=== PATIENT | male | born 1940 | race Caucasian/White ===

== ENCOUNTER 2017-05-14 15:30 | Emergency (ER) | payer MEDICARE, OTHER ==
--- NOTE | 2017-05-14 15:52 | EDM.PDOC ---
ED HPI GENERAL MEDICAL PROBLEM - General Chief Complaint: General Stated Complaint: I think I'm having a reaction to gabapentin Time Seen by Provider: 05/14/17 15:41 Source of Information: Reports: Patient, Family History Limitations: Reports: No Limitations - History of Present Illness INITIAL COMMENTS - FREE TEXT/NARRATIVE: Patient was started on gabapentin about a week ago for intermittent weakness and pain in lower extremities aggravated by walking. He took one dose a day for four days, then two doses a day for three days with no problems. He did have an episode of diaphoresis, dizziness and weakness yesterday while in [place] before getting a cat scan of spine to investigate for spinal stenosis. He was fine first thing today. At lunch, he took another dose of gabapentin (had been told by MD to increase to three times a day). 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 He did not vomit but was so weak he laid down in the grass a while before he went to the house to find his . Symptoms have almost resolved on arrival to ER. Onset: Today, Sudden Onset Date: 05/14/17 Onset Time: 13:00 Duration: Hour(s):, Improving, Resolved Prior to Arrival Location: Reports: Generalized Severity: Severe Improves with: Reports: Rest Worsens with: Reports: Movement Context: Reports: Activity Associated Symptoms: Reports: Diaphoresis, Nausea/Vomiting, Shortness of Breath , Weakness. Denies: Confusion, Cough, Headaches, Loss of Appetite, Malaise Lower Back Pain Score (Numeric/FACES): 7 - Related Data Allergies Allergy/AdvReac Type Severity Reaction Status Date / Time cortisone Allergy Cannot Verified 05/14/17 16:08 Remember meperidine [From Demerol] Allergy Cannot Verified 05/14/17 16:08 Remember Home Meds: Home Meds . [Unable to Verify Home Med List] 05/14/17 [History] Past Medical History Musculoskeletal History: Reports: Back Pain, Chronic, Other (See Below) ( chronic shoulder pain bilat due to rotator cuff issues, intermittent weakness and pain in bilat lower extremities with walking) ED ROS GENERAL - Review of Systems Review Of Systems: See Below Constitutional: Reports: Weakness, Diaphoresis. Denies: Fever, Weight Loss HEENT: Reports: Throat Swelling, Other (dizziness). Denies: Dental Pain, Ear Pain, Eye Pain, Nose Pain, Vision Change Respiratory: Reports: Shortness of Breath. Denies: Wheezing, Pleuritic Chest Pain, Cough, Sputum Cardiovascular: Reports: Dyspnea on Exertion (some chronic exertional dyspnea according to and patient. Patient was a smoker for many years but not now. ), Lightheadedness. Denies: Chest Pain, Blood Pressure Problem, Claudication, Orthopnea, Palpitations Endocrine: Reports: No Symptoms. Denies: Polydypsia, Polyuria GI/Abdominal: Reports: Difficulty Swallowing (difficulty swallowing when other symptoms noted, now resolved). Denies: Abdominal Pain, Constipation, Diarrhea, Hematemesis, Hematochezia : Reports: No Symptoms. Denies: Dysuria, Frequency, Hematuria, Incontinence Musculoskeletal: Reports: Shoulder Pain (chronic bilat shoulder pain and LBP), Back Pain Skin: Reports: No Symptoms Neurological: Reports: Difficulty Walking, Other (walking any distance causes numbness pain and weakness in bilat lower extremities. Patient states his legs will actually give out if he walks long enough.). Denies: Confusion, Dizziness , Headache, Seizure Psychiatric: Reports: No Symptoms Hematologic/Lymphatic: Reports: No Symptoms Immunologic: Reports: No Symptoms ED EXAM, GENERAL - Physical Exam Exam: See Below Exam Limited By: No Limitations General Appearance: Alert, WD/WN, No Apparent Distress Eye Exam: Bilateral Eye: EOMI, PERRL Ears: Normal External Exam, Normal Canal, Hearing Grossly Normal, Normal TMs Nose: Normal Inspection, Normal Mucosa Throat/Mouth: Normal Inspection, Normal Lips, Normal Teeth, Normal Oropharynx, Normal Voice, No Airway Compromise Head: Atraumatic, Normocephalic Neck: Normal Inspection, Supple, Non-Tender, Full Range of Motion. No: Carotid Bruit, Lymphadenopathy (L), Lymphadenopathy (R), Thyromegaly Respiratory/Chest: No Respiratory Distress, Lungs Clear, Chest Non-Tender, Decreased Breath Sounds. No: No Accessory Muscle Use, Crackles, Rales, Rhonchi , Wheezing Cardiovascular: Normal Peripheral Pulses, Regular Rate, Rhythm, No Edema, No JVD , No Murmur, No Rub Peripheral Pulses: 3+: Radial (L), Radial (R) GI/Abdominal: Normal Bowel Sounds, Soft, Non-Tender, No Organomegaly, No Abnormal Bruit, No Mass. No: Guarding, Rigid, Rebound, Tender (Male) Exam: Deferred Rectal (Males) Exam: Deferred Back Exam: Normal Inspection, Full Range of Motion. No: Muscle Spasm, Vertebral Tenderness Extremities: Normal Inspection, Normal Range of Motion, Non-Tender, No Pedal Edema Neurological: Alert, Oriented, CN II-XII Intact, Normal Cognition, Normal Gait, Normal Reflexes, No Motor/Sensory Deficits, Other (Patellar reflexes brisk bilat. Romberg negative. no focal neurologic deficit noted). No: Abnormal Gait Psychiatric: Normal Mood Skin Exam: Warm, Dry, Intact, Normal Color, No Rash Lymphatic: No Adenopathy EKG INTERPRETATION EKG Date: 05/14/17 Time: 16:00 Rhythm: NSR Rate (Beats/Min): 83 Vesper: Normal P-Wave: Present QRS: Normal ST-T: Other (diffuse non specific T wave abnormalites) QT: Normal Comparison: NA - No Prior EKG EKG Interpretation Comments: No acute specific abnormailites noted. No previous noted to compare to. Course - Vital Signs Text/Narrative:: Patient evaluated and labs and diagnostics reviewed with patient and . territory sales consultant did not reveal any arrythmia and patient symptoms did not reoccur while in ER. He was advised it is likely an adverse effect from gabapentin but could not completely rule out a cardiac or cerebral issue. If his symptoms persist or occur even after stopping the gabapentin, he will need further evaluation by his PCP. Patient voiced understanding of this information. Last Recorded V/S: Last Vital Signs Temp 36.4 C 05/14/17 15:30 Pulse 89 05/14/17 15:30 Resp 20 05/14/17 15:30 BP 120/60 05/14/17 15:30 Pulse Ox 91 L 05/14/17 15:30 - Orders/Labs/Meds Orders: Active Orders 24 hr Category Date Time Status EKG 12 Lead [EKG Documentation Completion] [RC] STAT Care 05/14/17 16:06 Active CXR [Chest 2V] [CR] Stat Exams 05/14/17 16:09 Taken Labs: Laboratory Tests 05/14/17 05/14/17 Range/Units 16:30 16:30 WBC 11.2 H (4.0-10.0) x10^3/uL RBC 4.98 (4.5-6.0) x10^6/uL Hgb 14.8 (14.0-18.0) g/dL Hct 44.3 (40.0-52.0) % MCV 89.0 (78.0-93.0) fL MCH 29.7 (26.0-32.0) pg MCHC 33.4 (32.0-36.0) g/dL RDW Coeff of Naseem 13.1 (10.0-15.0) % Plt Count 240 (130-400) x10^3/uL Neut % (Auto) 84.5 H (50.0-80.0) % Lymph % (Auto) 8.0 L (25.0-50.0) % Converse % (Auto) 5.8 (2.0-11.0) % Eos % (Auto) 1.3 (0.0-4.0) % Baso % (Auto) 0.4 (0.2-1.2) % Sodium 140 (136-145) mmol/L Potassium 4.4 (3.5-5.1) mmol/L Chloride 104 (98-107) mmol/L Carbon Dioxide 30 (21-32) mmol/L BUN 23 H (7-18) mg/dL Creatinine 1.6 H (0.70-1.30) mg/dL Est Cr Clr Drug Dosing 40.53 mL/min Estimated GFR (MDRD) 42 Glucose 132 H (74-106) mg/dL Calcium 8.7 (8.5-10.1) mg/dL Corrected Calcium 8.86 (8.5-10.1) mg/dL Total Bilirubin 0.3 (0.2-1.0) mg/dL AST 18 (15-37) U/L ALT 28 (16-63) U/L Alkaline Phosphatase 104 (46-116) U/L Creatine Kinase 125 (39-308) U/L Creatine Kinase Index 2.6 (0.0-4.0) % CK-MB (CK-2) 3.3 (0.0-3.6) ng/mL Troponin I < 0.017 (<=0.056) ng/mL Total Protein 7.4 (6.4-8.2) g/dL Albumin 3.8 (3.4-5.0) g/dL Globulin 3.6 Albumin/Globulin Ratio 1.06 TSH, Ultra Sensitive 0.520 (0.358-3.74) uIU/mL Departure - Departure Time of Disposition: 17:44 Disposition: Home, Self-Care 01 Condition: Good Clinical Impression: Medication adverse effect Qualifiers: Encounter type: initial encounter Qualified Code(s): T88.7XXA - Unspecified adverse effect of drug or medicament, initial encounter - Discharge Information Referrals: Hernan Rivera MD [Primary Care Provider] - Forms: ED Department Discharge Additional Instructions: Do not take any more gabapentin til you talk to your regular doctor. If you continue to have more similar episodes after no longer taking gabapentin you will need a further workup for possibly cardiac issues. - My Orders Last 24 Hours: My Active Orders 05/14/17 16:06 EKG 12 Lead [EKG Documentation Completion] [RC] STAT 05/14/17 16:09 CXR [Chest 2V] [CR] Stat - Assessment/Plan Last 24 Hours: My Active Orders 05/14/17 16:06 EKG 12 Lead [EKG Documentation Completion] [RC] STAT 05/14/17 16:09 CXR [Chest 2V] [CR] Stat
[2017-05-14 16:24] VITALS: BP 120/60
[2017-05-14 17:10] LABS: CHLORIDE,CL 104 mmol/L (98-107); SODIUM,NA 140 mmol/L (136-145)
== END 2017-05-14 17:50 | disposition home or self-care (01) ==
LOC: VM.ED 15:30
DX: R42 Dizziness and giddiness (principal); T42.6X5A Adverse effect of other antiepileptic and sedative-hypnotic drugs, initial encounter; Z88.8 Allergy status to other drugs, medicaments and biological substances
CPT/HCPCS: 36415; 71020; 80053; 82550; 82553; 84443; 84484; 85025; 99285; 99285-GF

== ENCOUNTER 2019-03-06 21:30 | Emergency (ER) | payer MEDICARE, OTHER ==
[2019-03-06] MEDS ORDERED: Sodium Chloride 0.9% 10 ML Syringe FLUSH PRN (21:51)
[2019-03-06] MEDS ORDERED: Aspirin 81 MG Tab.Chew PO ONE (21:53)
[2019-03-06] MEDS ORDERED: GI Cocktail Oral Solution 30 ML PO ONE (22:06)
--- NOTE | 2019-03-06 22:14 | EDM.PDOC ---
ED HPI GENERAL MEDICAL PROBLEM - General Chief Complaint: Cardiovascular Problem Stated Complaint: chest pain Time Seen by Provider: 03/06/19 21:32 Source of Information: Reports: Patient, Family History Limitations: Reports: No Limitations - History of Present Illness INITIAL COMMENTS - FREE TEXT/NARRATIVE: Patient comes in with reports of chest pressure mid sternal in nature with activity since noon. He describes the pain as tearing. It is intermittently happening since that time and worse with walking. Denies prior OR or Stroke. Was smoker up to 11 years ago. Denies nausea, vomiting, blood in urine or stool , no headache, no cancer, no edema. Denies numbness, tingling, or pain down any extremities or in the neck or back. He does state he removed a tree and stump yesterday. Onset: Today Duration: Intermittent Quality: Reports: Other (tearing) Severity: Moderate Worsens with: Reports: Movement Associated Symptoms: Reports: Chest Pain, Shortness of Breath - Related Data Allergies Allergy/AdvReac Type Severity Reaction Status Date / Time meperidine [From Demerol] Allergy Severe Anaphylactic Verified 03/06/19 23:30 Shock, Hypotension cortisone Allergy Intermediate memory loss Verified 03/06/19 23:30 codeine Allergy Cough Verified 03/06/19 23:30 Home Meds: Home Meds Carbidopa/Levodopa [Carbidopa-Levodopa 10-100] 1 tab PO BEDTIME 08/10/17 [ History] Lidocaine/Prilocaine [Lidocaine-Prilocaine Cream] 1 applic TOP BID PRN 08/10/17 [History] Pantoprazole [ProTONIX] 40 mg PO ACBREAKFAST 08/10/17 [History] fentaNYL [Duragesic] 12 mcg TD Q3D PRN 08/10/17 [History] Past Medical History HEENT History: Reports: Cataract, Impaired Vision, Other (See Below) Other HEENT History: wears glasses. full upper and lower dentures Cardiovascular History: Reports: None Respiratory History: Reports: COPD Gastrointestinal History: Reports: GERD, Irritable Bowel Syndrome Other Gastrointestinal History: Ulcers Genitourinary History: Reports: None Musculoskeletal History: Reports: Back Pain, Chronic, Fracture, Fibromyalgia, Other (See Below) Other Musculoskeletal History: Restless leg syndrome Neurological History: Reports: Concussion Other Neuro History: restless legs Psychiatric History: Reports: Anxiety, Depression Endocrine/Metabolic History: Reports: None Hematologic History: Reports: None Immunologic History: Reports: None Oncologic (Cancer) History: Reports: None Dermatologic History: Reports: None - Past Surgical History HEENT Surgical History: Reports: Cataract Surgery, Oral Surgery GI Surgical History: Reports: Appendectomy, Cholecystectomy, Colonoscopy, EGD, Polypectomy Musculoskeletal Surgical History: Reports: Shoulder Surgery Social & Family History - Caffeine Use Caffeine Use: Reports: Coffee ED ROS GENERAL - Review of Systems Review Of Systems: See Below Constitutional: Reports: No Symptoms HEENT: Reports: No Symptoms Respiratory: Reports: Shortness of Breath Cardiovascular: Reports: Chest Pain Endocrine: Reports: No Symptoms GI/Abdominal: Reports: No Symptoms : Reports: No Symptoms Musculoskeletal: Reports: No Symptoms Skin: Reports: No Symptoms Neurological: Reports: No Symptoms Psychiatric: Reports: No Symptoms Hematologic/Lymphatic: Reports: No Symptoms Immunologic: Reports: No Symptoms ED EXAM, GENERAL - Physical Exam Exam: See Below Exam Limited By: No Limitations General Appearance: Alert, WD/WN, No Apparent Distress Eye Exam: Bilateral Eye: EOMI, Normal Inspection, PERRL Ears: Normal External Exam, Normal Canal, Hearing Grossly Normal, Normal TMs Nose: Normal Inspection, Normal Mucosa, No Blood Throat/Mouth: Normal Inspection, Normal Lips, Normal Teeth, Normal Gums, Normal Oropharynx, Normal Voice, No Airway Compromise Head: Atraumatic, Normocephalic Neck: Normal Inspection, Supple, Non-Tender, Full Range of Motion Respiratory/Chest: No Respiratory Distress, Lungs Clear, Normal Breath Sounds, No Accessory Muscle Use, Other (chest pain reproducible upon palpation, mid sternal area) Cardiovascular: Normal Peripheral Pulses, Regular Rate, Rhythm, No Edema, No Gallop, No JVD, No Murmur, No Rub GI/Abdominal: Normal Bowel Sounds, Soft, Non-Tender, No Organomegaly, No Distention, No Abnormal Bruit, No Mass Back Exam: Normal Inspection, Full Range of Motion, NT Extremities: Normal Inspection, Normal Range of Motion, Non-Tender, Normal Capillary Refill, No Pedal Edema Neurological: Alert, Oriented, CN II-XII Intact, Normal Cognition, Normal Gait, Normal Reflexes, No Motor/Sensory Deficits Psychiatric: Normal Affect, Normal Mood Skin Exam: Warm, Dry, Intact, Normal Color, No Rash Lymphatic: No Adenopathy Course - Orders/Labs/Meds Orders: Active Orders 24 hr Category Date Time Status EKG Documentation Completion [RC] STAT Care 03/06/19 21:51 Ordered Chest 1V Frontal [CR] Stat Exams 03/06/19 21:51 Ordered CBC WITH AUTO DIFF [HEME] Stat Lab 03/06/19 21:51 Ordered COMPREHENSIVE METABOLIC PN,CMP [CHEM] Stat Lab 03/06/19 21:51 Ordered CREATINE KINASE,CK [CHEM] Stat Lab 03/06/19 21:51 Ordered INR,PT,PROTHROMBIN TIME [COAG] Stat Lab 03/06/19 21:51 Ordered PRO B-TYPE NATRIUR PEPT,BNPPRO [CHEM] Stat Lab 03/06/19 21:51 Ordered TROPONIN I [CHEM] Stat Lab 03/06/19 21:51 Ordered TSH ULTRASENSITIVE [CHEM] Stat Lab 03/06/19 21:51 Ordered Sodium Chloride 0.9% [Saline Flush] Med 03/06/19 21:51 Ordered 10 ml FLUSH ASDIRECTED PRN Saline Lock Insert [OM.PC] Routine Oth 03/06/19 21:51 Ordered Medication Orders Sodium Chloride (Saline Flush) 10 ml FLUSH ASDIRECTED PRN PRN Reason: Keep Vein Open Meds: Medications Generic Name Dose Route Start Last Admin Trade Name Freq PRN Reason Stop Dose Admin Sodium Chloride 10 ml 03/06/19 21:51 Saline Flush FLUSH ASDIRECTED PRN Keep Vein Open Discontinued Medications Generic Name Dose Route Start Last Admin Trade Name Freq PRN Reason Stop Dose Admin Al Hydroxide/Mg Hydroxide 30 ml 03/06/19 22:06 Gi Cocktail PO 03/06/19 22:07 ONETIME ONE Aspirin 162 mg 03/06/19 21:53 Aspirin PO 03/06/19 21:54 ONETIME ONE - Radiology Interpretation Free Text/Narrative:: Chest x-ray negative, chest, abdomen, pelvis negative for AAA, negative for acute process Departure - Departure Time of Disposition: 23:39 Disposition: Home, Self-Care 01 Condition: Fair Clinical Impression: Troponin level elevated Instructions: Acute Coronary Syndrome Forms: ED Department Discharge Additional Instructions: Plan 1. Return in the AM for additional Troponin level draw. 2. If higher than first reading, I recommend additional follow up at [facility] for further studies to be sure this is not cardiac related. 3. I did recommend hospitalization overnight, which you did refuse. 4. Drink more water. You do have slightly elevated kidney creatinine levels which can indicate some renal failure. 5. If you have additional chest pains you can try tylenol and return to the ER as needed. 6. Please call with any questions or concerns. - Problem List & Annotations (1) Troponin level elevated SNOMED Code(s): 921703957, [id number], [id number] Code(s): R74.8 - ABNORMAL LEVELS OF OTHER SERUM ENZYMES Status: Acute Priority: Medium Current Visit: Yes - Problem List Review Problem List Initiated/Reviewed/Updated: Yes - My Orders Last 24 Hours: My Active Orders 03/06/19 21:51 EKG Documentation Completion [RC] STAT Chest 1V Frontal [CR] Stat CBC WITH AUTO DIFF [HEME] Stat COMPREHENSIVE METABOLIC PN,CMP [CHEM] Stat CREATINE KINASE,CK [CHEM] Stat INR,PT,PROTHROMBIN TIME [COAG] Stat PRO B-TYPE NATRIUR PEPT,BNPPRO [CHEM] Stat TROPONIN I [CHEM] Stat TSH ULTRASENSITIVE [CHEM] Stat Sodium Chloride 0.9% [Saline Flush] 10 ml FLUSH ASDIRECTED PRN Saline Lock Insert [OM.PC] Routine - Assessment/Plan Last 24 Hours: My Active Orders 03/06/19 21:51 EKG Documentation Completion [RC] STAT Chest 1V Frontal [CR] Stat CBC WITH AUTO DIFF [HEME] Stat COMPREHENSIVE METABOLIC PN,CMP [CHEM] Stat CREATINE KINASE,CK [CHEM] Stat INR,PT,PROTHROMBIN TIME [COAG] Stat PRO B-TYPE NATRIUR PEPT,BNPPRO [CHEM] Stat TROPONIN I [CHEM] Stat TSH ULTRASENSITIVE [CHEM] Stat Sodium Chloride 0.9% [Saline Flush] 10 ml FLUSH ASDIRECTED PRN Saline Lock Insert [OM.PC] Routine Assessment:: Elevated troponin Plan: Plan 1. Return in the AM for additional Troponin level draw. 2. If higher than first reading, I recommend additional follow up at [facility] for further studies to be sure this is not cardiac related. 3. I did recommend hospitalization overnight, which you did refuse. 4. Drink more water. You do have slightly elevated kidney creatinine levels which can indicate some renal failure. 5. If you have additional chest pains you can try tylenol and return to the ER as needed. 6. Please call with any questions or concerns.
[2019-03-06] MEDS ORDERED: Iopamidol 612 MG/ML 100 ML Bottle IVPUSH ONE (22:27)
[2019-03-06 22:58] LABS: CHLORIDE,CL 108 mmol/L (98-107); SODIUM,NA 144 mmol/L (136-145)
[2019-03-06 23:00] LABS: ANION GAP 11.2 mmol/L (10-20)
[2019-03-07 05:03] VITALS: BP 148/76
--- NOTE | 2019-03-07 08:54 | CR ---
[id number] RAD/RAD Chest PA or AP 1V EXAM: FRONTAL CHEST INDICATION: Chest pain. COMPARISON: May 14, 2017. DISCUSSION: Hyperinflation compatible with chronic obstructive pulmonary disease. Mild bibasilar scarring or subsegmental atelectasis. No acute infiltrates. IMPRESSION: 1. No acute findings. Skyler Hensley MD 03/07/19 0853 Thank you for allowing us to participate in the care of your patient.
--- NOTE | 2019-03-07 09:13 | CT ---
[id number] CT/CT Chest Abdomen Pelvis W IV EXAM: CT Chest Abdomen Pelvis W IV CLINICAL DATA: THORACIC ANEURYSM. COMPARISON STUDY: Radiograph from March 06, 2019.. FINDINGS: Thoracic aorta atherosclerosis, most prominent in the aortic arch and proximal aspect of the descending segment. 4 vessel branching pattern of the aortic arch, normal variant. However, no aneurysm. No dissection. Lungs demonstrate moderate changes of parenchymal emphysema, apical predominant. Additionally, there is moderate basal predominant peribronchial thickening, consistent with chronic bronchitis. Mild sequela of granulomatous disease throughout the lungs, including numerous small subpleural noncalcified pulmonary nodules measuring up to 4 mm in diameter. Mild amount of dependent atelectasis in both lungs. Small amount of debris layering dependently in the bronchus intermedius. Abdomen/pelvis: Gallbladder has been resected. Liver, spleen, pancreas, adrenal glands, and kidneys are unremarkable. Few scattered colonic diverticula. No evidence of acute diverticulitis. No colitis. No small bowel obstruction or inflammation. Prostate gland enlargement exerting mass effect on the bladder base. Urinary bladder is unremarkable. No lymphadenopathy in the abdomen or pelvis. Bones and soft tissues: Postsurgical change discectomy and posterior fusion at L4-5. Advanced L5-S1 spondylosis. IMPRESSION: Aorta atherosclerosis without aneurysm or dissection. Overall, no acute findings in the chest, abdomen, or pelvis. Link Lara MD 03/07/19 0912 Thank you for allowing us to participate in the care of your patient.
== END 2019-03-06 23:45 | disposition home or self-care (01) ==
LOC: VM.ED 21:30
DX: R79.89 Other specified abnormal findings of blood chemistry (principal); J44.9 Chronic obstructive pulmonary disease, unspecified; G89.29 Other chronic pain; F41.9 Anxiety disorder, unspecified; F32.9 Major depressive disorder, single episode, unspecified; Z79.899 Other long term (current) drug therapy; Z88.5 Allergy status to narcotic agent
CPT/HCPCS: 36415; 71045; 71260; 74177; 80053; 82550; 83880; 84443; 84484; 85025; 85610; 93005; 99285; A9270; Q9967

== ENCOUNTER 2019-03-08 20:18 | Emergency (ER) | payer MEDICARE, OTHER ==
[2019-03-08] MEDS: Piperacillin/Tazobactam 4.5 GM in Sodium Chloride 0.9% 100 ML IV ONE (20:46)
--- NOTE | 2019-03-08 20:51 | EDM.PDOC ---
ED HPI GENERAL MEDICAL PROBLEM - General Chief Complaint: Cardiovascular Problem Stated Complaint: SOB Time Seen by Provider: 03/08/19 20:24 Source of Information: Reports: Patient History Limitations: Reports: No Limitations - History of Present Illness INITIAL COMMENTS - FREE TEXT/NARRATIVE: Pt. presents to ER with complaints of severe dyspnea. Pt. was discharged AMA from [facility] in [place] this AM following stenting of a 100% LAD occlusion. He was admitted yesterday and left AMA this AM. Pt. was found to have bilateral lower lobe pneumonia and was started on oral levaquin 500mg daily. He states that he has been having increased dyspnea throughout the day today. He states that he has had some cough. No fever or chills. His only other complaint is that of nausea. Denies any chest discomfort, jaw, arm, neck or back pain. Pt. troponin on discharge this AM was 8. His EF on echo performed this AM was 35 -40%. He was started on ACEI, beta romana, and clopidogrel when discharged this AM. EMS was summoned to transport the patient this evening. His initial O2 sat was in the lower 80% range. He was started on O2 and states that he is feeling much better since starting the O2. He was on O2 via NRB at 15 liters and was satting in the high 90s. He does have an underlying history of COPD and quit smoking 11 years ago. Does not appear that he uses any inhalers. Prehospital EKG showed continued ST changes. This was reviewed by cardiology and felt to be improved. 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: EKG, IV/IO, Oxygen Abdomen Pain Score (Numeric/FACES): 6 - Related Data Allergies Allergy/AdvReac Type Severity Reaction Status Date / Time meperidine [From Demerol] Allergy Severe Anaphylactic Verified 03/08/19 21:03 Shock, Hypotension cortisone Allergy Intermediate memory loss Verified 03/08/19 21:03 codeine Allergy Cough Verified 03/08/19 21:03 Home Meds: Home Meds Carbidopa/Levodopa [Carbidopa-Levodopa 10-100] 1 tab PO BEDTIME 08/10/17 [ History] Lidocaine/Prilocaine [Lidocaine-Prilocaine Cream] 1 applic TOP BID PRN 08/10/17 [History] Pantoprazole [ProTONIX] 40 mg PO ACBREAKFAST 08/10/17 [History] fentaNYL [Duragesic] 12 mcg TD Q3D PRN 08/10/17 [History] Citalopram [Citalopram HBr] 20 mg PO DAILY 03/08/19 [History] Clopidogrel Bisulfate [Plavix] 75 mg PO DAILY 03/08/19 [History] Levofloxacin 500 mg PO DAILY 03/08/19 [History] Lisinopril 5 mg PO DAILY 03/08/19 [History] Metoprolol Succinate [Toprol XL] 25 mg PO DAILY 03/08/19 [History] atorvaSTATin [Lipitor] 40 mg PO DAILY 03/08/19 [History] Past Medical History HEENT History: Reports: Cataract, Impaired Vision, Other (See Below) Other HEENT History: wears glasses. full upper and lower dentures Cardiovascular History: Reports: None Respiratory History: Reports: COPD Gastrointestinal History: Reports: GERD, Irritable Bowel Syndrome Other Gastrointestinal History: Ulcers Genitourinary History: Reports: None Musculoskeletal History: Reports: Back Pain, Chronic, Fracture, Fibromyalgia, Other (See Below) Other Musculoskeletal History: Restless leg syndrome Neurological History: Reports: Concussion Other Neuro History: restless legs Psychiatric History: Reports: Anxiety, Depression Endocrine/Metabolic History: Reports: None Hematologic History: Reports: None Immunologic History: Reports: None Oncologic (Cancer) History: Reports: None Dermatologic History: Reports: None - Past Surgical History HEENT Surgical History: Reports: Cataract Surgery, Oral Surgery GI Surgical History: Reports: Appendectomy, Cholecystectomy, Colonoscopy, EGD, Polypectomy Musculoskeletal Surgical History: Reports: Shoulder Surgery Social & Family History - Caffeine Use Caffeine Use: Reports: Coffee ED ROS GENERAL - Review of Systems Review Of Systems: See Below Constitutional: Reports: No Symptoms HEENT: Reports: No Symptoms Respiratory: Reports: Shortness of Breath, Cough Cardiovascular: Reports: Dyspnea on Exertion. Denies: Palpitations Endocrine: Reports: No Symptoms GI/Abdominal: Reports: Nausea : Reports: No Symptoms Musculoskeletal: Reports: No Symptoms Skin: Reports: No Symptoms Neurological: Reports: No Symptoms Psychiatric: Reports: No Symptoms Hematologic/Lymphatic: Reports: No Symptoms Immunologic: Reports: No Symptoms ED EXAM, GENERAL - Physical Exam Exam: See Below Exam Limited By: No Limitations General Appearance: Alert, WD/WN, Mild Distress Eye Exam: Bilateral Eye: EOMI, PERRL Throat/Mouth: Normal Inspection, Normal Lips, Other (oral mucosa moist). No: Inflammation Head: Atraumatic, Normocephalic Neck: Normal Inspection, Supple, Non-Tender, Full Range of Motion Respiratory/Chest: No Accessory Muscle Use, Respiratory Distress (mild), Crackles, Rales, Rhonchi Cardiovascular: Normal Peripheral Pulses, Regular Rate, Rhythm Peripheral Pulses: 3+: Radial (R) GI/Abdominal: Normal Bowel Sounds, Soft, Non-Tender, No Organomegaly, No Distention, No Mass (Male) Exam: Deferred Rectal (Males) Exam: Deferred Back Exam: Normal Inspection, Full Range of Motion Extremities: Normal Inspection, Normal Range of Motion, Non-Tender, No Pedal Edema, Normal Capillary Refill Neurological: Alert, Oriented, CN II-XII Intact, Normal Cognition, Normal Reflexes Psychiatric: Normal Affect, Normal Mood Skin Exam: Warm, Dry, Intact EKG INTERPRETATION Rhythm: NSR ST-T: Other (anterioseptal T wave inversion) Course - Vital Signs Last Recorded V/S: Last Vital Signs Temp 37.4 C 03/08/19 20:24 Pulse 83 03/08/19 21:24 Resp 19 03/08/19 21:24 BP 90/51 L 03/08/19 21:24 Pulse Ox 90 L 03/08/19 21:24 - Orders/Labs/Meds Orders: Active Orders 24 hr Category Date Time Status Cardiac Monitoring [RC] CONTINUOUS Care 03/08/19 20:23 Ordered EKG Documentation Completion [RC] STAT Care 03/08/19 20:22 Ordered Oxygen Therapy [RC] PRN Care 03/08/19 20:23 Ordered Chest 1V Frontal [CR] Stat Exams 03/08/19 20:22 Ordered CULTURE BLOOD [BC] Stat Lab 03/08/19 20:23 Ordered CULTURE BLOOD [BC] Stat Lab 03/08/19 20:23 Ordered Heparin Sodium/0.45% NaCl [Heparin 25,000 Units in 1/2 Med 03/08/19 22:00 Ordered NS 500 ML] 25,000 units in 500 ml IV TITRATE Norepinephrine [Levophed] 4 mg Med 03/08/19 21:45 Active Dextrose 5% in Water 246 ml IV TITRATE Sodium Chloride 0.9% [Normal Saline] 1,000 ml Med 03/08/19 21:03 Ordered IV .BOLUS Vancomycin 1,500 mg Med 03/08/19 20:30 Ordered Sodium Chloride 0.9% [Normal Saline] 250 ml IV STAT Blood Culture x2 Reflex Set [OM.PC] Stat Oth 03/08/19 20:23 Ordered Medication Orders Vancomycin HCl 1,500 mg/ (Sodium Chloride) 250 mls @ 167 mls/hr IV STAT ONE Stop: 03/08/19 21:59 Last Admin: 03/08/19 20:59 Dose: 167 mls/hr Sodium Chloride (Normal Saline) 1,000 mls @ 1,000 mls/hr IV .BOLUS ONE Stop: 03/08/19 22:02 Last Admin: 03/08/19 21:14 Dose: 1,000 mls/hr Norepinephrine Bitartrate 4 mg (/ Dextrose/Water) 250 mls @ 15 mls/hr IV TITRATE NEEMA; Protocol Heparin Sodium/Sodium Chloride (Heparin 25,000 Units In 1/2 Ns 500 Ml) 25,000 units in 500 mls @ 20 mls/hr IV TITRATE NEEMA; Protocol Labs: Laboratory Tests 03/08/19 03/08/19 03/08/19 Range/Units 20:29 20:29 20:29 WBC 15.4 H (4.0-10.0) x10^3/uL RBC 4.98 (4.5-6.0) x10^6/uL Hgb 14.6 (14.0-18.0) g/dL Hct 42.6 (40.0-52.0) % MCV 85.5 (78.0-93.0) fL MCH 29.3 (26.0-32.0) pg MCHC 34.3 (32.0-36.0) g/dL RDW Coeff of Naseem 13.0 (10.0-15.0) % Plt Count 248 (130-400) x10^3/uL Neut % (Auto) 90.7 H (50.0-80.0) % Lymph % (Auto) 3.4 L (25.0-50.0) % [place] % (Auto) 5.0 (2.0-11.0) % Eos % (Auto) 0.7 (0.0-4.0) % Baso % (Auto) 0.2 (0.2-1.2) % PT 12.0 (10.0-12.8) SEC INR 1.1 L (2.0-3.5) APTT (24.0-36.0) SEC D-Dimer, Quantitative 3.29 H (<=0.58) mg/LFEU POC ABG pH (7.35-7.45) POC ABG pCO2 (35-45) mmHG POC ABG pO2 (80-105) mmHG POC ABG HCO3 (22-26) mmol/L POC ABG Total CO2 (23-27) mmol/L POC ABG O2 Sat (95-98) % POC ABG Base Excess (-2-3) mmol/L POC FiO2 Sodium 140 (136-145) mmol/L Potassium 3.9 (3.5-5.1) mmol/L Chloride 104 (98-107) mmol/L Carbon Dioxide 19 L D (21-32) mmol/L Anion Gap 20.9 H (10-20) mmol/L BUN 23 H (7-18) mg/dL Creatinine 1.5 H (0.70-1.30) mg/dL Est Cr Clr Drug Dosing 41.83 mL/min Estimated GFR (MDRD) 45 Glucose 179 H (74-106) mg/dL Lactic Acid (0.4-2.0) mmol/L Calcium 8.4 L (8.5-10.1) mg/dL Corrected Calcium 9.12 (8.5-10.1) mg/dL Phosphorus 3.3 (2.6-4.7) mg/dL Magnesium 2.3 (1.8-2.4) mg/dL Total Bilirubin 0.7 (0.2-1.0) mg/dL AST 270 H (15-37) U/L ALT 22 (16-63) U/L Alkaline Phosphatase 95 (46-116) U/L POC Troponin I (0.00-0.08) ng/mL Troponin I (<=0.056) ng/mL C-Reactive Protein 4.9 H (<=0.9) mg/dL NT-Pro-B Natriuret Pep 84581 H (<=450) pg/mL Total Protein 6.4 (6.4-8.2) g/dL Albumin 3.1 L (3.4-5.0) g/dL Globulin 3.3 Albumin/Globulin Ratio 0.94 TSH, Ultra Sensitive 1.446 (0.358-3.74) uIU/mL POC Result Comm 03/08/19 03/08/19 03/08/19 Range/Units 20:29 20:29 20:47 WBC (4.0-10.0) x10^3/uL RBC (4.5-6.0) x10^6/uL Hgb (14.0-18.0) g/dL Hct (40.0-52.0) % MCV (78.0-93.0) fL MCH (26.0-32.0) pg MCHC (32.0-36.0) g/dL RDW Coeff of Naseem (10.0-15.0) % Plt Count (130-400) x10^3/uL Neut % (Auto) (50.0-80.0) % Lymph % (Auto) (25.0-50.0) % [place] % (Auto) (2.0-11.0) % Eos % (Auto) (0.0-4.0) % Baso % (Auto) (0.2-1.2) % PT (10.0-12.8) SEC INR (2.0-3.5) APTT 23.6 L (24.0-36.0) SEC D-Dimer, Quantitative (<=0.58) mg/LFEU POC ABG pH 7.376 (7.35-7.45) POC ABG pCO2 30 L (35-45) mmHG POC ABG pO2 58 L* (80-105) mmHG POC ABG HCO3 17 L (22-26) mmol/L POC ABG Total CO2 18 L (23-27) mmol/L POC ABG O2 Sat 89 L (95-98) % POC ABG Base Excess -8 L (-2-3) mmol/L POC FiO2 0.36 Sodium (136-145) mmol/L Potassium (3.5-5.1) mmol/L Chloride (98-107) mmol/L Carbon Dioxide (21-32) mmol/L Anion Gap (10-20) mmol/L BUN (7-18) mg/dL Creatinine (0.70-1.30) mg/dL Est Cr Clr Drug Dosing mL/min Estimated GFR (MDRD) Glucose (74-106) mg/dL Lactic Acid 4.1 H* (0.4-2.0) mmol/L Calcium (8.5-10.1) mg/dL Corrected Calcium (8.5-10.1) mg/dL Phosphorus (2.6-4.7) mg/dL Magnesium (1.8-2.4) mg/dL Total Bilirubin (0.2-1.0) mg/dL AST (15-37) U/L ALT (16-63) U/L Alkaline Phosphatase (46-116) U/L POC Troponin I (0.00-0.08) ng/mL Troponin I (<=0.056) ng/mL C-Reactive Protein (<=0.9) mg/dL NT-Pro-B Natriuret Pep (<=450) pg/mL Total Protein (6.4-8.2) g/dL Albumin (3.4-5.0) g/dL Globulin Albumin/Globulin Ratio TSH, Ultra Sensitive (0.358-3.74) uIU/mL POC Result Comm 03/08/19 03/08/19 Range/Units 20:58 21:16 WBC (4.0-10.0) x10^3/uL RBC (4.5-6.0) x10^6/uL Hgb (14.0-18.0) g/dL Hct (40.0-52.0) % MCV (78.0-93.0) fL MCH (26.0-32.0) pg MCHC (32.0-36.0) g/dL RDW Coeff of Naseem (10.0-15.0) % Plt Count (130-400) x10^3/uL Neut % (Auto) (50.0-80.0) % Lymph % (Auto) (25.0-50.0) % [place] % (Auto) (2.0-11.0) % Eos % (Auto) (0.0-4.0) % Baso % (Auto) (0.2-1.2) % PT (10.0-12.8) SEC INR (2.0-3.5) APTT (24.0-36.0) SEC D-Dimer, Quantitative (<=0.58) mg/LFEU POC ABG pH (7.35-7.45) POC ABG pCO2 (35-45) mmHG POC ABG pO2 (80-105) mmHG POC ABG HCO3 (22-26) mmol/L POC ABG Total CO2 (23-27) mmol/L POC ABG O2 Sat (95-98) % POC ABG Base Excess (-2-3) mmol/L POC FiO2 Sodium (136-145) mmol/L Potassium (3.5-5.1) mmol/L Chloride (98-107) mmol/L Carbon Dioxide (21-32) mmol/L Anion Gap (10-20) mmol/L BUN (7-18) mg/dL Creatinine (0.70-1.30) mg/dL Est Cr Clr Drug Dosing mL/min Estimated GFR (MDRD) Glucose (74-106) mg/dL Lactic Acid (0.4-2.0) mmol/L Calcium (8.5-10.1) mg/dL Corrected Calcium (8.5-10.1) mg/dL Phosphorus (2.6-4.7) mg/dL Magnesium (1.8-2.4) mg/dL Total Bilirubin (0.2-1.0) mg/dL AST (15-37) U/L ALT (16-63) U/L Alkaline Phosphatase (46-116) U/L POC Troponin I > 49.00 H* > 49.00 H* (0.00-0.08) ng/mL Troponin I (<=0.056) ng/mL C-Reactive Protein (<=0.9) mg/dL NT-Pro-B Natriuret Pep (<=450) pg/mL Total Protein (6.4-8.2) g/dL Albumin (3.4-5.0) g/dL Globulin Albumin/Globulin Ratio TSH, Ultra Sensitive (0.358-3.74) uIU/mL POC Result Comm Called critical res Meds: Medications Generic Name Dose Route Start Last Admin Trade Name Freq PRN Reason Stop Dose Admin Vancomycin HCl 1,500 mg/ 250 mls @ 167 mls/hr 03/08/19 20:30 03/08/19 20:59 Sodium Chloride IV 03/08/19 21:59 167 mls/hr STAT ONE Administration Sodium Chloride 1,000 mls @ 1,000 mls/hr 03/08/19 21:03 03/08/19 21:14 Normal Saline IV 03/08/19 22:02 1,000 mls/hr .BOLUS ONE Administration Norepinephrine Bitartrate 4 mg 250 mls @ 15 mls/hr 03/08/19 21:45 / Dextrose/Water IV TITRATE NEEMA Protocol 4 MCG/MIN Heparin Sodium/Sodium Chloride 25,000 units in 500 mls @ 20 mls/hr 03/08/19 22 :00 Heparin 25,000 Units In 1/2 Ns 500 Ml IV TITRATE [facility] Protocol Discontinued Medications Generic Name Dose Route Start Last Admin Trade Name En PRN Reason Stop Dose Admin Furosemide 40 mg 03/08/19 21:40 03/08/19 21:47 Lasix IV 03/08/19 21:41 40 mg ONETIME ONE Administration Heparin Sodium (Porcine) 4,000 units 03/08/19 21:53 Heparin Sodium IVPUSH 03/08/19 21:54 .BOLUS ONE Piperacillin Sod/Tazobactam 100 mls @ 200 mls/hr 03/08/19 20:28 03/08/19 20: 46 Sod 4.5 gm/ Sodium Chloride IV 03/08/19 20:57 200 mls/hr STAT ONE Administration - Radiology Interpretation Free Text/Narrative:: R lower lobe infiltrate, L basilar atelectasis. - Re-Assessments/Exams Free Text/Narrative Re-Assessment/Exam: Pt. initial BP was 102/51. He was started on zosyn 4.5gm IV and vancomycin 1500mg IV. He was discharged on levaquin and is not improving. His BP did decrease to 80/40 range. He was started on IV normal saline, small boluses given his recent ID and potential for heart failure/cardiogenic shock. ABGs showed a PO2 of 58. 03/08/19 21:47 PT. BP still borderline in the [address] systolic [address] 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 Pt. will be started on levophed 2mcg/min. He was given lasix 40mg IV. 03/08/19 21:59 Pt. was started on heparin 1000u bolus and was given a 4000u/hr drip. Departure - Departure Time of Disposition: 22:15 Disposition: DC/Tfer to Acute Hospital 02 Reason for Transfer *Q: Other Condition: Critical Clinical Impression: Healthcare associated bacterial pneumonia, Sepsis, Non-ST elevation ID (NSTEMI) , Cardiogenic shock Referrals: Hernan Rivera MD [Primary Care Provider] - Forms: ED Department Discharge, Interfacility Transfer EMTALA - Problem List Review Problem List Initiated/Reviewed/Updated: Yes - My Orders Last 24 Hours: My Active Orders 03/08/19 20:22 EKG Documentation Completion [RC] STAT Chest 1V Frontal [CR] Stat 03/08/19 20:23 Cardiac Monitoring [RC] CONTINUOUS Oxygen Therapy [RC] PRN CULTURE BLOOD [BC] Stat CULTURE BLOOD [BC] Stat Blood Culture x2 Reflex Set [OM.PC] Stat 03/08/19 20:30 Vancomycin 1,500 mg Sodium Chloride 0.9% [Normal Saline] 250 ml IV STAT 03/08/19 21:03 Sodium Chloride 0.9% [Normal Saline] 1,000 ml IV .BOLUS 03/08/19 21:45 Norepinephrine [Levophed] 4 mg Dextrose 5% in Water 246 ml IV TITRATE 03/08/19 22:00 Heparin Sodium/0.45% NaCl [Heparin 25,000 Units in 1/2 NS 500 ML] 25,000 units in 500 ml IV TITRATE - Assessment/Plan Last 24 Hours: My Active Orders 03/08/19 20:22 EKG Documentation Completion [RC] STAT Chest 1V Frontal [CR] Stat 03/08/19 20:23 Cardiac Monitoring [RC] CONTINUOUS Oxygen Therapy [RC] PRN CULTURE BLOOD [BC] Stat CULTURE BLOOD [BC] Stat Blood Culture x2 Reflex Set [OM.PC] Stat 03/08/19 20:30 Vancomycin 1,500 mg Sodium Chloride 0.9% [Normal Saline] 250 ml IV STAT 03/08/19 21:03 Sodium Chloride 0.9% [Normal Saline] 1,000 ml IV .BOLUS 03/08/19 21:45 Norepinephrine [Levophed] 4 mg Dextrose 5% in Water 246 ml IV TITRATE 03/08/19 22:00 Heparin Sodium/0.45% NaCl [Heparin 25,000 Units in 1/2 NS 500 ML] 25,000 units in 500 ml IV TITRATE Plan: Pt. will be transported via [facility] ground ambulance. Titrate levophed as needed. Discussed findings with patient and . They have never discussed code status in the past. Pt. wishs to be intubated "until they get me going" and does want CPR. He states that he does not want continued resuscitation if he is not improving or is in a vegatative state. Pt. will be code 1 at this point.
[2019-03-08] MEDS: Sodium Chloride 0.9% 1,000 ML IV ONE (21:14)
[2019-03-08 21:28] LABS: ANION GAP 20.9 mmol/L (10-20)
[2019-03-08] MEDS: Furosemide 40 MG/4 ML VIAL IV ONE (21:47)
[2019-03-08] MEDS: Norepinephrine 4 MG in Dextrose 5% in Water 246 ML IV SCH ×2 (21:59)
[2019-03-08] MEDS ORDERED: Heparin Sodium/0.45% NaCl 25,000 UNITS/500 ML BAG IV SCH (22:00)
[2019-03-08] MEDS: Heparin Sodium 5,000 Units/ML Vial IVPUSH ONE (22:05)
[2019-03-08] MEDS: Aspirin 81 MG Tab.Chew PO ONE (22:15)
[2019-03-08] MEDS: Heparin Sodium/0.45% NaCl 500 ML ONE (22:16)
[2019-03-08 23:01] VITALS: BP 97/53
[2019-03-09] MEDS ORDERED: Norepinephrine 4 MG/4 ML SDV ONE (00:58)
--- NOTE | 2019-03-09 08:47 | CR ---
[id number] RAD/RAD Chest PA or AP 1V EXAM: SINGLE VIEW CHEST. INDICATION: SHORTNESS OF BREATH COMPARISON: CORRELATION IS MADE WITH THE EXAM OF MARCH 06, 2019. FINDINGS: There is mild to moderate pulmonary edema. The cardiomediastinal contour is stable. IMPRESSION: CHF. Roger Cabrera MD 03/09/19 0846 Thank you for allowing us to participate in the care of your patient.
== END 2019-03-08 22:24 | disposition short-term general hospital (02) ==
LOC: VM.ED 20:18
DX: A41.9 Sepsis, unspecified organism (principal); J15.9 Unspecified bacterial pneumonia; R57.0 Cardiogenic shock; Y95 Nosocomial condition; I21.4 Non-ST elevation (NSTEMI) myocardial infarction; J44.9 Chronic obstructive pulmonary disease, unspecified; F41.9 Anxiety disorder, unspecified; F32.9 Major depressive disorder, single episode, unspecified; Z88.8 Allergy status to other drugs, medicaments and biological substances; Z79.899 Other long term (current) drug therapy
CPT/HCPCS: 36415; 36600; 71045; 80053; 82803; 83605; 83735; 83880; 84100; 84443; 84484; 85025; 85379; 85610; 85730; 86140; 87040; 93005; 96365; 96367; 96368; 96375; 96376; 99291; 99292; A9270; J1644; J1940; J2543; J3370; J7030; J7050; J7060; 93010; 99285-GF

== ENCOUNTER 2019-07-19 23:22 | Observation (INO) | payer MEDICARE, OTHER ==
[2019-07-19] MEDS ORDERED: Sodium Chloride 0.9% 10 ML Syringe FLUSH PRN (23:32)
[2019-07-19] MEDS ORDERED: Albuterol/Ipratropium 3.0-0.5 MG/3 ML Neb Soln NEB ONE (23:33)
[2019-07-19] MEDS ORDERED: Sodium Chloride 0.9% 1,000 ML IV ONE (23:33)
[2019-07-19] MEDS ORDERED: Albuterol/Ipratropium 3.0-0.5 MG/3 ML Neb Soln ONE (23:39)
--- NOTE | 2019-07-20 00:18 | EDM.PDOC ---
ED HPI GENERAL MEDICAL PROBLEM - General Chief Complaint: Respiratory Problem Stated Complaint: SOB Time Seen by Provider: 07/19/19 23:25 Source of Information: Reports: Patient, EMS Notes Reviewed, Family, RN, RN Notes Reviewed History Limitations: Reports: No Limitations - History of Present Illness INITIAL COMMENTS - FREE TEXT/NARRATIVE: Patient is brought to the emergency room at [facility] via EMS for acute COPD exacerbation. The patient started having breathing trouble earlier this week. The patient was seen in the emergency room at [facility] on July 16 for the same symptoms. The patient was given prednisone and albuterol nebulizers and discharged home. The patient had a chest x-ray which was negative for any acute pathology. The patient's blood work during his visit was essentially unremarkable. The patient did receive 1 DuoNeb in route per EMS. The patient states earlier tonight he felt as if he could not get an any air. The patient states that he had some gasping respirations. The patient did not have any LOC. The patient states he had a burning sensation across his entire chest. Patient did not have any abdominal pain nausea vomiting or diarrhea. The patient does have a history of acid reflux and is currently taking Protonix. The patient did have 2 separate scopes of his throat per ENT for complaints of a fullness in his throat. Results did not show any acute findings. The patient is a history of an [place] February 2019 in which she did have a drug-eluting stent placed. The patient is currently on Coumadin and Plavix. The patient is on the Coumadin for her paroxysmal atrial fibrillation. Onset: Gradual Duration: Chronic - Related Data Allergies Allergy/AdvReac Type Severity Reaction Status Date / Time meperidine [From Demerol] Allergy Severe Anaphylactic Verified 07/19/19 23:36 Shock, Hypotension cortisone Allergy Intermediate memory loss Verified 07/19/19 23:36 codeine Allergy Cough Verified 07/19/19 23:36 Home Meds: Home Meds Carbidopa/Levodopa [Carbidopa-Levodopa 10-100] 1 tab PO BEDTIME 08/10/17 [ History] Citalopram [Citalopram HBr] 20 mg PO DAILY 03/08/19 [History] Clopidogrel Bisulfate [Plavix] 75 mg PO DAILY 03/08/19 [History] Gabapentin [Neurontin] 300 mg PO BEDTIME 03/08/19 [History] Meclizine [Antivert] 25 mg PO TID PRN 03/08/19 [History] Metoprolol Succinate [Toprol XL] 25 mg PO DAILY 03/08/19 [History] Pantoprazole Sodium 40 mg PO DAILY 03/08/19 [History] atorvaSTATin [Lipitor] 40 mg PO DAILY 03/08/19 [History] Budesonide [Pulmicort] 2 puff IH BID 05/16/19 [History] Warfarin [Coumadin] 2.5 mg PO DAILY 05/16/19 [History] traMADol [Ultram] 50 mg PO Q6H PRN 05/16/19 [History] Albuterol Sulfate [Proair Hfa] 2 puff IH Q4H PRN 07/19/19 [History] Albuterol/Ipratropium [Combivent Respimat] 4 gm IH Q6H PRN 07/19/19 [History] Albuterol/Ipratropium [DuoNeb 3.0-0.5 MG/3 ML] 3 ml IH Q4H PRN 07/19/19 [History ] Fluticasone/Vilanterol [Breo Ellipta 100-25 MCG Inhalation Kit] 1 puff IH DAILY 07/19/19 [History] Furosemide [Lasix] 20 mg PO DAILY 07/19/19 [History] Umeclidinium Brm/Vilanterol Tr [Anoro Ellipta 62.5-25 MCG] 1 puff IH DAILY 07/19 [History] Past Medical History HEENT History: Reports: Cataract, Impaired Vision, Other (See Below) Other HEENT History: wears glasses. full upper and lower dentures Cardiovascular History: Reports: None Respiratory History: Reports: COPD Gastrointestinal History: Reports: GERD, Irritable Bowel Syndrome Other Gastrointestinal History: Ulcers Genitourinary History: Reports: None Musculoskeletal History: Reports: Back Pain, Chronic, Fracture, Fibromyalgia, Other (See Below) Other Musculoskeletal History: Restless leg syndrome Neurological History: Reports: Concussion Other Neuro History: restless legs Psychiatric History: Reports: Anxiety, Depression Endocrine/Metabolic History: Reports: None Hematologic History: Reports: None Immunologic History: Reports: None Oncologic (Cancer) History: Reports: None Dermatologic History: Reports: None - Past Surgical History HEENT Surgical History: Reports: Cataract Surgery, Oral Surgery GI Surgical History: Reports: Appendectomy, Cholecystectomy, Colonoscopy, EGD, Polypectomy Musculoskeletal Surgical History: Reports: Shoulder Surgery Social & Family History - Tobacco Use Smoking Status *Q: Former Smoker Used Tobacco, but Quit: Yes Month/Year Tobacco Last Used: 11/22 - Caffeine Use Caffeine Use: Reports: Coffee ED ROS GENERAL - Review of Systems Review Of Systems: See Below Constitutional: Denies: Fever, Chills Respiratory: Reports: Shortness of Breath, Cough, Sputum Cardiovascular: Denies: Chest Pain, Palpitations GI/Abdominal: Denies: Abdominal Pain, Nausea, Vomiting Skin: Reports: No Symptoms Neurological: Reports: No Symptoms ED EXAM, GENERAL - Physical Exam Exam: See Below Exam Limited By: No Limitations General Appearance: Alert, No Apparent Distress Respiratory/Chest: No Respiratory Distress, Decreased Breath Sounds, Wheezing. No: Crackles, Rales, Rhonchi Cardiovascular: Normal Peripheral Pulses, Regular Rate, Rhythm, No Edema Peripheral Pulses: 2+: Radial (L), Radial (R) GI/Abdominal: Normal Bowel Sounds, Soft, Non-Tender Extremities: Normal Inspection Neurological: Alert, Oriented Skin Exam: Warm, Dry, Intact, Normal Color EKG INTERPRETATION EKG Date: 07/20/19 Time: 00:06 Rhythm: NSR Rate (Beats/Min): 75 [place]: Normal P-Wave: Present QRS: Normal ST-T: Normal QT: Normal [place]/PQ Interval: 0.17 Comparison: No Change EKG Interpretation Comments: 1. NSR 2. Anteroseptal Infarct, age indeterminate Course - Vital Signs Last Recorded V/S: Last Vital Signs Temp 97.4 F 07/19/19 23:24 Pulse 83 07/19/19 23:24 Resp 22 H 07/19/19 23:24 BP 128/66 07/19/19 23:24 Pulse Ox 95 07/19/19 23:24 - Orders/Labs/Meds Orders: Active Orders 24 hr Category Date Time Status Admission Status [Patient Status] [ADT] Routine ADT 07/20/19 00:14 Active EKG 12 Lead [EKG Documentation Completion] [RC] STAT Care 07/19/19 23:42 Active RT Aerosol Therapy [RC] ASDIRECTED Care 07/19/19 23:33 Active Chest 1V Frontal [CR] Stat Exams 07/19/19 23:32 Taken Sodium Chloride 0.9% [Normal Saline] 1,000 ml Med 07/19/19 23:33 Active IV ONETIME Sodium Chloride 0.9% [Saline Flush] Med 07/19/19 23:32 Active 10 ml FLUSH ASDIRECTED PRN Peripheral IV Insertion Adult [OM.PC] Routine Oth 07/19/19 23:32 Ordered Medication Orders Sodium Chloride (Normal Saline) 1,000 mls @ 30 mls/hr IV ONETIME ONE Stop: 07/21/19 08:52 Last Admin: 07/19/19 23:40 Dose: 30 mls/hr Sodium Chloride (Saline Flush) 10 ml FLUSH ASDIRECTED PRN PRN Reason: Keep Vein Open Labs: Laboratory Tests 07/19/19 07/20/19 Range/Units 23:50 00:04 WBC 8.5 (4.0-10.0) x10^3/uL RBC 4.62 (4.5-6.0) x10^6/uL Hgb 13.4 L (14.0-18.0) g/dL Hct 40.2 (40.0-52.0) % MCV 87.0 (78.0-93.0) fL MCH 29.0 (26.0-32.0) pg MCHC 33.3 (32.0-36.0) g/dL RDW Coeff of Naseem 14.2 (10.0-15.0) % Plt Count 178 (130-400) x10^3/uL Neut % (Auto) 75.7 (50.0-80.0) % Lymph % (Auto) 11.2 L (25.0-50.0) % [place] % (Auto) 7.7 (2.0-11.0) % Eos % (Auto) 5.2 H (0.0-4.0) % Baso % (Auto) 0.2 (0.2-1.2) % POC ABG pH 7.413 (7.35-7.45) POC ABG pCO2 37 (35-45) mmHG POC ABG pO2 64 L (80-105) mmHG POC ABG HCO3 24 (22-26) mmol/L POC ABG Total CO2 25 (23-27) mmol/L POC ABG O2 Sat 93 L (95-98) % POC ABG Base Excess -1 (-2-3) mmol/L POC FiO2 0.21 Meds: Medications Generic Name Dose Route Start Last Admin Trade Name Freq PRN Reason Stop Dose Admin Sodium Chloride 1,000 mls @ 30 mls/hr 07/19/19 23:33 07/19/19 23:40 Normal Saline IV 07/21/19 08:52 30 mls/hr ONETIME ONE Administration Sodium Chloride 10 ml 07/19/19 23:32 Saline Flush FLUSH ASDIRECTED PRN Keep Vein Open Discontinued Medications Generic Name Dose Route Start Last Admin Trade Name Freq PRN Reason Stop Dose Admin Albuterol/Ipratropium 3 ml 07/19/19 23:33 07/19/19 23:41 Duoneb 3.0-0.5 Mg/3 Ml NEB 07/19/19 23:34 3 ml ONETIME ONE Administration Albuterol/Ipratropium Confirm 07/19/19 23:39 07/19/19 23:45 Duoneb 3.0-0.5 Mg/3 Ml Administered 07/19/19 23:40 Not Given Dose 3 ml .ROUTE .STK-[facility] ONE - Radiology Interpretation Free Text/Narrative:: Chest, 1V Portable: No radiographic evidence of acute pathology See scanned document in EMR for details Departure - Departure Time of Disposition: 00:31 Disposition: Refer to Observation Condition: Fair Clinical Impression: COPD with exacerbation, Hypoxia, SOB (shortness of breath) - Discharge Information *PRESCRIPTION DRUG MONITORING PROGRAM REVIEWED*: Not Applicable *COPY OF PRESCRIPTION DRUG MONITORING REPORT IN PATIENT BRAD: Not Applicable - Problem List Review Problem List Initiated/Reviewed/Updated: Yes - My Orders Last 24 Hours: My Active Orders 07/19/19 23:32 Chest 1V Frontal [CR] Stat Sodium Chloride 0.9% [Saline Flush] 10 ml FLUSH ASDIRECTED PRN Peripheral IV Insertion Adult [OM.PC] Routine 07/19/19 23:33 RT Aerosol Therapy [RC] ASDIRECTED Sodium Chloride 0.9% [Normal Saline] 1,000 ml IV ONETIME 07/19/19 23:42 EKG 12 Lead [EKG Documentation Completion] [RC] STAT 07/20/19 00:14 Admission Status [Patient Status] [ADT] Routine - Assessment/Plan Admission H&P: Please use this note as an admission H&P Last 24 Hours: My Active Orders 07/19/19 23:32 Chest 1V Frontal [CR] Stat Sodium Chloride 0.9% [Saline Flush] 10 ml FLUSH ASDIRECTED PRN Peripheral IV Insertion Adult [OM.PC] Routine 07/19/19 23:33 RT Aerosol Therapy [RC] ASDIRECTED Sodium Chloride 0.9% [Normal Saline] 1,000 ml IV ONETIME 07/19/19 23:42 EKG 12 Lead [EKG Documentation Completion] [RC] STAT 07/20/19 00:14 Admission Status [Patient Status] [ADT] Routine Assessment:: COPD exacerbation Hypoxia SOB Plan: Patient will be admitted to observation. I do not anticipate the patient being admitted greater than 48 hours. The patient is a code level II after discussion with patient and family. The patient will be started on dual nebs as needed. We will start Solu-Medrol 40 mg every 12 hours. We'll continue all other home medications the same. We will hold home COPD medications for now and see if patient qualifies for [facility] for nebulized meds.
[2019-07-20 00:27] LABS: CHLORIDE,CL 101 mmol/L (98-107); SODIUM,NA 139 mmol/L (136-145)
[2019-07-20 00:30] LABS: ANION GAP 12.1 mmol/L (10-20)
[2019-07-20] MEDS ORDERED: Ondansetron 4 MG Tab.DIS PO PRN (00:49)
[2019-07-20] MEDS ORDERED: Sodium Chloride 0.9% 1,000 ML IV SCH (01:00)
[2019-07-20] MEDS ORDERED: methylPREDNISolone Sodium Succinate 40 MG/1 ML SDV IVPUSH SCH (01:00)
[2019-07-20] MEDS ORDERED: Meclizine 25 MG Tab PO PRN (01:14)
[2019-07-20] MEDS: Albuterol/Ipratropium 3.0-0.5 MG/3 ML Neb Soln INH PRN ×2 (04:18→10:49)
[2019-07-20] MEDS ORDERED: Pantoprazole 40 MG Tab.CR PO SCH (07:00)
[2019-07-20 07:15] LABS: ANION GAP 16.3 mmol/L (10-20)
--- NOTE | 2019-07-20 07:41 | CR ---
[id number] RAD/RAD Chest PA or AP 1V EXAM: SINGLE VIEW CHEST. INDICATION: SHORTNESS OF BREATH HYPOXIA COMPARISON: CORRELATION IS MADE WITH THE CAT SCAN OF MARCH 06, 2019 FINDINGS: The lungs are clear and hyperaerated The cardiomediastinal contour is stable IMPRESSION: AIRWAY DISEASE Roger Cabrera MD 07/20/19 0740 Thank you for allowing us to participate in the care of your patient.
[2019-07-20] MEDS ORDERED: Clopidogrel 75 MG Tab PO SCH (08:00)
[2019-07-20] MEDS ORDERED: Citalopram 20 MG Tab PO SCH (08:00)
[2019-07-20] MEDS ORDERED: Furosemide 20 MG Tab PO SCH (08:00)
[2019-07-20] MEDS ORDERED: atorvaSTATin 40 MG Tab PO SCH (08:00)
[2019-07-20] MEDS ORDERED: Metoprolol Succinate 25 MG Tab.ER PO SCH (08:00)
[2019-07-20 10:25] VITALS: BP 106/73
--- NOTE | 2019-07-20 11:41 | PCM.DCSUM1 ---
Discharge Summary - Hospital Course Brief History: Patient admitted for COPD exacerbation last evening. Was in the ER at [facility] July 16, 2019 for similar symptoms. Sent home on prednisone and duoneb nebulizer. Hospital stay uneventful. Stable throughout the night. No further complaints and requesting to be discharged today. Diagnosis: Stroke: No Modified [place] Scale: No Symptoms at All Modified [place] Scale Score: 0 - Discharge Data Discharge Date: 07/20/19 Discharge Disposition: Home, Self-Care 01 Condition: Good - Discharge Diagnosis/Problem(s) (1) COPD with exacerbation SNOMED Code(s): 670045144 ICD Code: J44.1 - CHRONIC OBSTRUCTIVE PULMONARY DISEASE W (ACUTE) EXACERBATION Status: Acute Current Visit: No - Patient Summary/Data Consults: Consultations 07/20/19 00:49 Consult to Case Management/[employer] [CONS] Routine Respiratory Care Assess and Treatment [CONS] Routine Recommended Follow-up Testing/Procedures: Follow up with pulmonology as needed. Schedule follow up appointment with Nadya Black for additional COPD support and assistance with acquiring daily medications at a bell you can realistically afford. Return at any time if you develop shortness of breath, cough, fever, chills, or other difficulty breathing. Make sure to continue to take your medications as prescribed. - Patient Instructions Diet: Usual Diet as Tolerated Activity: As Tolerated Driving: May Drive Today - Discharge Plan *PRESCRIPTION DRUG MONITORING PROGRAM REVIEWED*: Not Applicable *COPY OF PRESCRIPTION DRUG MONITORING REPORT IN PATIENT BRAD: Not Applicable Home Medications: Home Meds Carbidopa/Levodopa [Carbidopa-Levodopa 10-100] 1 tab PO BEDTIME 08/10/17 [ History] Citalopram [Citalopram HBr] 20 mg PO DAILY 03/08/19 [History] Clopidogrel Bisulfate [Plavix] 75 mg PO DAILY 03/08/19 [History] Gabapentin [Neurontin] 300 mg PO BEDTIME 03/08/19 [History] Meclizine [Antivert] 25 mg PO TID PRN 03/08/19 [History] Metoprolol Succinate [Toprol XL] 25 mg PO DAILY 03/08/19 [History] Pantoprazole Sodium 40 mg PO DAILY 03/08/19 [History] atorvaSTATin [Lipitor] 40 mg PO DAILY 03/08/19 [History] Budesonide [Pulmicort] 2 puff IH BID 05/16/19 [History] Warfarin [Coumadin] 2.5 mg PO DAILY 05/16/19 [History] traMADol [Ultram] 50 mg PO Q6H PRN 05/16/19 [History] Albuterol Sulfate [Proair Hfa] 2 puff IH Q4H PRN 07/19/19 [History] Albuterol/Ipratropium [Combivent Respimat] 4 gm IH Q6H PRN 07/19/19 [History] Albuterol/Ipratropium [DuoNeb 3.0-0.5 MG/3 ML] 3 ml IH Q4H PRN 07/19/19 [History ] Fluticasone/Vilanterol [Breo Ellipta 100-25 MCG Inhalation Kit] 1 puff IH DAILY 07/19/19 [History] Furosemide [Lasix] 20 mg PO DAILY 07/19/19 [History] Umeclidinium Brm/Vilanterol Tr [Anoro Ellipta 62.5-25 MCG] 1 puff IH DAILY 07/19 [History] Oxygen Therapy Mode: Room Air Referrals: PCP,Unobtain [Primary Care Provider] - - Discharge Summary/Plan Comment DC Time >30 min.: Yes - General Info Date of Service: 07/20/19 Admission Dx/Problem (Free Text: COPD with exacerbation Functional Status: Reports: Pain Controlled - Review of Systems General: Reports: No Symptoms HEENT: Reports: Other (throat pain) Pulmonary: Reports: No Symptoms Cardiovascular: Reports: No Symptoms Gastrointestinal: Reports: No Symptoms Genitourinary: Reports: No Symptoms Musculoskeletal: Reports: No Symptoms Skin: Reports: No Symptoms Neurological: Reports: No Symptoms Psychiatric: Reports: No Symptoms - Patient Data Vitals - Most Recent: Last Vital Signs Temp 36.4 C 07/20/19 10:00 Pulse 81 07/20/19 10:00 Resp 18 07/20/19 10:00 BP 106/73 07/20/19 10:00 Pulse Ox 92 L 07/20/19 10:00 Weight - Most Recent: 80.739 kg I&O - Last 24 hours: Intake & Output 07/19/19 07/20/19 07/20/19 22:59 06:59 14:59 Intake Total 287 240 Output Total 600 Balance -313 240 Lab Results - Last 24 hrs: Laboratory Results - last 24 hr 07/19/19 07/19/19 07/20/19 Range/Units 23:50 23:50 00:04 WBC 8.5 (4.0-10.0) x10^3/uL RBC 4.62 (4.5-6.0) x10^6/uL Hgb 13.4 L (14.0-18.0) g/dL Hct 40.2 (40.0-52.0) % MCV 87.0 (78.0-93.0) fL MCH 29.0 (26.0-32.0) pg MCHC 33.3 (32.0-36.0) g/dL RDW Coeff of Naseem 14.2 (10.0-15.0) % Plt Count 178 (130-400) x10^3/uL Neut % (Auto) 75.7 (50.0-80.0) % Lymph % (Auto) 11.2 L (25.0-50.0) % [place] % (Auto) 7.7 (2.0-11.0) % Eos % (Auto) 5.2 H (0.0-4.0) % Baso % (Auto) 0.2 (0.2-1.2) % PT (10.0-12.8) SEC INR (2.0-3.5) POC ABG pH 7.413 (7.35-7.45) POC ABG pCO2 37 (35-45) mmHG POC ABG pO2 64 L (80-105) mmHG POC ABG HCO3 24 (22-26) mmol/L POC ABG Total CO2 25 (23-27) mmol/L POC ABG O2 Sat 93 L (95-98) % POC ABG Base Excess -1 (-2-3) mmol/L POC FiO2 0.21 Sodium 139 (136-145) mmol/L Potassium 4.1 (3.5-5.1) mmol/L Chloride 101 (98-107) mmol/L Carbon Dioxide 30 D (21-32) mmol/L Anion Gap 12.1 (10-20) mmol/L BUN 19 H (7-18) mg/dL Creatinine 1.2 (0.70-1.30) mg/dL Est Cr Clr Drug Dosing TNP Estimated GFR (MDRD) 58 Glucose 115 H (74-106) mg/dL Calcium 8.4 L (8.5-10.1) mg/dL Corrected Calcium 9.20 (8.5-10.1) mg/dL Total Bilirubin 0.3 (0.2-1.0) mg/dL AST 21 (15-37) U/L ALT 25 (16-63) U/L Alkaline Phosphatase 114 (46-116) U/L Creatine Kinase 91 (39-308) U/L Troponin I 0.048 (<=0.056) ng/mL Total Protein 5.8 L (6.4-8.2) g/dL Albumin 3.0 L (3.4-5.0) g/dL Globulin 2.8 Albumin/Globulin Ratio 1.07 07/20/19 07/20/19 07/20/19 Range/Units 06:20 06:20 06:20 WBC 8.0 (4.0-10.0) x10^3/uL RBC 4.78 (4.5-6.0) x10^6/uL Hgb 13.8 L (14.0-18.0) g/dL Hct 41.7 (40.0-52.0) % MCV 87.2 (78.0-93.0) fL MCH 28.9 (26.0-32.0) pg MCHC 33.1 (32.0-36.0) g/dL RDW Coeff of Naseem 14.4 (10.0-15.0) % Plt Count 188 (130-400) x10^3/uL Neut % (Auto) 92.7 H (50.0-80.0) % Lymph % (Auto) 4.9 L (25.0-50.0) % [place] % (Auto) 1.3 L (2.0-11.0) % Eos % (Auto) 1.0 (0.0-4.0) % Baso % (Auto) 0.1 L (0.2-1.2) % PT 19.4 H D (10.0-12.8) SEC INR 1.7 L (2.0-3.5) POC ABG pH (7.35-7.45) POC ABG pCO2 (35-45) mmHG POC ABG pO2 (80-105) mmHG POC ABG HCO3 (22-26) mmol/L POC ABG Total CO2 (23-27) mmol/L POC ABG O2 Sat (95-98) % POC ABG Base Excess (-2-3) mmol/L POC FiO2 Sodium 140 (136-145) mmol/L Potassium 4.3 (3.5-5.1) mmol/L Chloride 103 (98-107) mmol/L Carbon Dioxide 25 (21-32) mmol/L Anion Gap 16.3 (10-20) mmol/L BUN 17 (7-18) mg/dL Creatinine 1.2 (0.70-1.30) mg/dL Est Cr Clr Drug Dosing 51.42 Estimated GFR (MDRD) 58 Glucose 146 H (74-106) mg/dL Calcium 8.7 (8.5-10.1) mg/dL Corrected Calcium (8.5-10.1) mg/dL Total Bilirubin (0.2-1.0) mg/dL AST (15-37) U/L ALT (16-63) U/L Alkaline Phosphatase (46-116) U/L Creatine Kinase (39-308) U/L Troponin I (<=0.056) ng/mL Total Protein (6.4-8.2) g/dL Albumin (3.4-5.0) g/dL Globulin Albumin/Globulin Ratio Med Orders - Current: Current Medications Albuterol/Ipratropium (Duoneb 3.0-0.5 Mg/3 Ml) 3 ml INH Q4H PRN PRN Reason: Shortness of Breath Last Admin: 07/20/19 10:49 Dose: 3 ml Atorvastatin Calcium (Lipitor) 40 mg PO DAILY [facility] Last Admin: 07/20/19 07:53 Dose: 40 mg Carbidopa/Levodopa (Sinemet 10-100 Mg) 1 tab PO BEDTIME [facility] Citalopram Hydrobromide (Celexa) 20 mg PO DAILY [facility] Last Admin: 07/20/19 07:54 Dose: 20 mg Clopidogrel Bisulfate (Plavix) 75 mg PO DAILY [facility] Last Admin: 07/20/19 07:53 Dose: 75 mg Furosemide (Lasix) 20 mg PO DAILY [facility] Last Admin: 07/20/19 07:54 Dose: 20 mg Gabapentin (Neurontin) 300 mg PO BEDTIME [facility] Sodium Chloride (Normal Saline) 1,000 mls @ 30 mls/hr IV ONETIME ONE Stop: 07/21/19 08:52 Last Admin: 07/19/19 23:40 Dose: 30 mls/hr Sodium Chloride (Normal Saline) 1,000 mls @ 50 mls/hr IV ASDIRECTED [facility] Last Admin: 07/20/19 01:19 Dose: 50 mls/hr Meclizine HCl (Antivert) 25 mg PO TID PRN PRN Reason: DIZZINESS Methylprednisolone Sodium Succinate (Solu-Medrol) 40 mg IVPUSH Q12H [facility] Last Admin: 07/20/19 01:23 Dose: 40 mg Metoprolol Succinate (Toprol Xl) 25 mg PO DAILY [facility] Last Admin: 07/20/19 07:53 Dose: 25 mg Ondansetron HCl (Zofran Odt) 4 mg PO Q6H PRN PRN Reason: nausea, able to take PO Pantoprazole Sodium (Protonix) 40 mg PO ACBREAKFAST [facility] Last Admin: 07/20/19 06:08 Dose: 40 mg Sodium Chloride (Saline Flush) 10 ml FLUSH ASDIRECTED PRN PRN Reason: Keep Vein Open Last Admin: 07/20/19 01:23 Dose: 10 ml Warfarin Sodium (Coumadin) 2.5 mg PO [email or web address] [facility] Discontinued Medications Albuterol/Ipratropium (Duoneb 3.0-0.5 Mg/3 Ml) 3 ml NEB ONETIME ONE Stop: 07/19/19 23:34 Last Admin: 07/19/19 23:41 Dose: 3 ml Albuterol/Ipratropium (Duoneb 3.0-0.5 Mg/3 Ml) Confirm Administered Dose 3 ml .ROUTE .STK-[facility] ONE Stop: 07/19/19 23:40 Last Admin: 07/19/19 23:45 Dose: Not Given - Exam General: Reports: Alert, Oriented HEENT: Reports: Pupils Equal, Pupils Reactive, EOMI, Mucous Membr. Moist/[place] Neck: Reports: Supple Lungs: Reports: Clear to Auscultation, Normal Respiratory Effort Cardiovascular: Reports: Regular Rate, Regular Rhythm GI/Abdominal Exam: Normal Bowel Sounds, Soft, Non-Tender, No Organomegaly, No Distention, No Abnormal Bruit, No Mass, Pelvis Stable Back Exam: Reports: Normal Inspection, Full Range of Motion Extremities: Normal Inspection, Normal Range of Motion, Non-Tender, No Pedal Edema, Normal Capillary Refill Skin: Reports: Warm, Dry, Intact Wound/Incisions: Reports: Healing Well Neurological: Reports: No New Focal Deficit Psy/Mental Status: Reports: Alert, Normal Affect, Normal Mood
[2019-07-20] MEDS ORDERED: Carbidopa/Levodopa 10-100 MG Tab PO SCH (20:00)
[2019-07-20] MEDS ORDERED: Warfarin 2.5 MG Tab PO SCH (20:00)
[2019-07-20] MEDS ORDERED: Gabapentin 300 MG Cap PO SCH (20:00)
== END 2019-07-20 12:45 | disposition home or self-care (01) ==
LOC: VM.ED 23:22 → VM.MS 07-20 00:43
PROVIDERS: ADMIT Nurse Practitioner Family; ATTEND Nurse Practitioner Family
DX: J44.1 Chronic obstructive pulmonary disease with (acute) exacerbation (principal); K21.9 Gastro-esophageal reflux disease without esophagitis; F41.9 Anxiety disorder, unspecified; F32.9 Major depressive disorder, single episode, unspecified; Z87.891 Personal history of nicotine dependence; Z79.899 Other long term (current) drug therapy; Z79.02 Long term (current) use of antithrombotics/antiplatelets; Z79.01 Long term (current) use of anticoagulants; Z88.5 Allergy status to narcotic agent; Z88.8 Allergy status to other drugs, medicaments and biological substances
CPT/HCPCS: 36415; 36600; 71045; 80048; 80053; 82550; 82803; 84484; 85025; 85610; 93005; 94640; 94760; 96360; 96361; 96374; 99285-25; A9270-GY; G0378; J2920; J7030; J7620-GY

== ENCOUNTER 2020-07-31 23:40 | Emergency (ER) | payer MEDICARE, OTHER ==
[2020-07-31] MEDS ORDERED: Sodium Chloride 0.9% 10 ML Syringe FLUSH PRN (23:49)
[2020-08-01] MEDS ORDERED: Iopamidol 612 MG/ML 100 ML Bottle IVPUSH ONE (00:50)
[2020-08-01 00:53] LABS: CHLORIDE,CL 98 mmol/L (98-107); SODIUM,NA 134 mmol/L (136-145)
[2020-08-01 00:54] LABS: ANION GAP 10.4 mmol/L (10-20)
--- NOTE | 2020-08-01 01:33 | EDM.PDOC ---
ED HPI GENERAL MEDICAL PROBLEM - General Chief Complaint: Abdominal Pain Stated Complaint: abdominal pain Time Seen by Provider: 07/31/20 23:45 Source of Information: Reports: Patient History Limitations: Reports: No Limitations - History of Present Illness INITIAL COMMENTS - FREE TEXT/NARRATIVE: Pt. presents to ER with complaints of L lower abdominal pain, history of coughing, and shortness of breath. Pt. states that the symptoms started 24-48 hours ago. He states that he was coughing extremely hard yesterday and feels that this has improved. Cough has been productive of yellowish sputum. He states that he developed onset of lower abdominal pain that has improved somewhat as well and now only localizes to the LLQ. Pt. discharged 06-20-[address] [facility] following treatment for acute COPD exacerbation. No pneumonia was noted at that time. He has been hospitalized numerous times for pneumonia, COPD exacerbation, and acute respiratory failure in the past. He lives at home with his . Pt. states that he has not been running any fever. No ill contacts that he is aware of. He is not experiencing any acute substernal chest pain. No jaw, arm, neck or back pain. Pt. states last BM was earlier in the day. It was normal. No reported melena, hematochezia, or hematemesis. No nausea, vomiting, or diarrhea. Onset Date: 07/30/20 Location: Reports: Chest, Abdomen Quality: Reports: Ache Severity: Moderate - Related Data Allergies Allergy/AdvReac Type Severity Reaction Status Date / Time meperidine [From Demerol] Allergy Severe Anaphylactic Verified 08/01/20 00:26 Shock, Hypotension cortisone AdvReac Intermediate memory loss Verified 08/01/20 00:26 codeine AdvReac Cough Verified 08/01/20 00:26 Home Meds: Home Meds Carbidopa/Levodopa [Carbidopa-Levodopa 10-100] 1 tab PO BEDTIME 08/10/17 [History] Citalopram [Citalopram HBr] 20 mg PO DAILY 03/08/19 [History] Clopidogrel Bisulfate [Plavix] 75 mg PO DAILY 03/08/19 [History] Gabapentin [Neurontin] 300 mg PO BEDTIME 03/08/19 [History] Meclizine [Antivert] 25 mg PO TID PRN 03/08/19 [History] Metoprolol Succinate [Toprol XL] 25 mg PO DAILY 03/08/19 [History] atorvaSTATin [Lipitor] 40 mg PO DAILY 03/08/19 [History] Warfarin [Coumadin] 2.5 mg PO DAILY 05/16/19 [History] Albuterol Sulfate [Proair Hfa] 2 puff IH Q4H PRN 07/19/19 [History] Albuterol/Ipratropium [DuoNeb 3.0-0.5 MG/3 ML] 3 ml IH Q4H PRN 07/19/19 [History] Budesonide [Pulmicort] 2 puff INH BID #60 07/20/19 [Rx] Arformoterol [Brovana] 15 mcg INH Q12HR 08/01/20 [History] Aspirin [Aspirin EC] 81 mg PO DAILY 08/01/20 [History] Betamethasone Dipropionate [Betamethasone Diprop Augmented] 15 gm TP BID PRN 08/01/20 [History] Past Medical History HEENT History: Reports: Cataract, Impaired Vision, Other (See Below) Other HEENT History: wears glasses. full upper and lower dentures Cardiovascular History: Reports: None Respiratory History: Reports: COPD Gastrointestinal History: Reports: GERD, Irritable Bowel Syndrome Other Gastrointestinal History: Ulcers Genitourinary History: Reports: None Musculoskeletal History: Reports: Back Pain, Chronic, Fracture, Fibromyalgia, Other (See Below) Other Musculoskeletal History: Restless leg syndrome Neurological History: Reports: Concussion Other Neuro History: restless legs Psychiatric History: Reports: Anxiety, Depression Endocrine/Metabolic History: Reports: None Hematologic History: Reports: None Immunologic History: Reports: None Oncologic (Cancer) History: Reports: None Dermatologic History: Reports: None - Infectious Disease History Infectious Disease History: Reports: Other (See Below) Other Infectious Disease History: patient fell asleep - Past Surgical History HEENT Surgical History: Reports: Cataract Surgery, Oral Surgery GI Surgical History: Reports: Appendectomy, Cholecystectomy, Colonoscopy, EGD, Polypectomy Musculoskeletal Surgical History: Reports: Shoulder Surgery Social & Family History - Family History Family Medical History: Noncontributory - Tobacco Use Smoking Status *Q: Current Status Unknown - Caffeine Use Caffeine Use: Reports: Coffee, Tea ED ROS GENERAL - Review of Systems Review Of Systems: See Below Constitutional: Reports: No Symptoms HEENT: Reports: No Symptoms Respiratory: Reports: Shortness of Breath, Wheezing, Cough, Sputum Cardiovascular: Reports: No Symptoms Endocrine: Reports: No Symptoms GI/Abdominal: Reports: Abdominal Pain. Denies: Black Stool, Bloody Stool, Constipation, Diarrhea, Distension, Hematemesis, Hematochezia, Melena, Nausea, Vomiting : Reports: No Symptoms Musculoskeletal: Reports: No Symptoms Skin: Reports: No Symptoms Neurological: Reports: No Symptoms Psychiatric: Reports: No Symptoms Hematologic/Lymphatic: Reports: No Symptoms Immunologic: Reports: No Symptoms ED EXAM, GENERAL - Physical Exam Exam: See Below Exam Limited By: No Limitations General Appearance: Alert, WD/WN, Mild Distress Eye Exam: Bilateral Eye: EOMI, PERRL Nose: Normal Inspection, Normal Mucosa Throat/Mouth: Normal Inspection, Normal Lips, Normal Voice, No Airway Compromise, Other (oral mucosa moist) Head: Atraumatic, Normocephalic Neck: Normal Inspection, Supple, Non-Tender, Full Range of Motion Respiratory/Chest: Decreased Breath Sounds, Wheezing Cardiovascular: Normal Peripheral Pulses, Regular Rate, Rhythm, No JVD, No Rub Peripheral Pulses: 4+: Radial (R) GI/Abdominal: Soft, Non-Tender, No Distention, No Mass (Male) Exam: Deferred Rectal (Males) Exam: Deferred Back Exam: Normal Inspection, Full Range of Motion Extremities: Normal Inspection, Normal Range of Motion, Non-Tender, No Pedal Edema, Normal Capillary Refill Neurological: Alert, Oriented, CN II-XII Intact, Normal Cognition EKG INTERPRETATION Rhythm: NSR [place]: Normal P-Wave: Present QRS: Normal ST-T: Normal QT: Normal Course - Vital Signs Last Recorded V/S: Last Vital Signs Temp 35.9 C L 07/31/20 23:43 Pulse 59 L 07/31/20 23:43 Resp 18 07/31/20 23:43 BP 141/68 H 07/31/20 23:43 Pulse Ox 96 07/31/20 23:43 - Orders/Labs/Meds Orders: Active Orders 24 hr Category Date Time Status EKG Documentation Completion [RC] STAT Care 07/31/20 23:52 Active Abdomen 2V AP Flat Upright [CR] Stat Exams 08/01/20 00:01 Taken Abdomen Pelvis w Cont [CT] Stat Exams 08/01/20 00:46 Taken Chest 2V [CR] Stat Exams 08/01/20 00:01 Taken CULTURE BLOOD [BC] Stat Lab 07/31/20 23:54 Received CULTURE BLOOD [BC] Stat Lab 07/31/20 23:54 Received Sodium Chloride 0.9% [Saline Flush] Med 07/31/20 23:49 Active 10 ml FLUSH ASDIRECTED PRN Blood Culture x2 Reflex Set [OM.PC] Stat Oth 07/31/20 23:54 Ordered Peripheral IV Insertion Adult [OM.PC] Routine Oth 07/31/20 23:50 Ordered Medication Orders Sodium Chloride (Saline Flush) 10 ml FLUSH ASDIRECTED PRN PRN Reason: Keep Vein Open Labs: Laboratory Tests 07/31/20 08/01/20 08/01/20 Range/Units 23:54 00:14 00:14 WBC 12.0 H (4.0-10.0) x10^3/uL RBC 4.76 (4.5-6.0) x10^6/uL Hgb 13.9 L (14.0-18.0) g/dL Hct 40.6 (40.0-52.0) % MCV 85.3 (78.0-93.0) fL MCH 29.2 (26.0-32.0) pg MCHC 34.2 (32.0-36.0) g/dL RDW Coeff of Naseem 13.0 (10.0-15.0) % Plt Count 210 (130-400) x10^3/uL Neut % (Auto) 85.2 H (50.0-80.0) % Lymph % (Auto) 6.3 L (25.0-50.0) % [place] % (Auto) 7.3 (2.0-11.0) % Eos % (Auto) 0.9 (0.0-4.0) % Baso % (Auto) 0.3 (0.2-1.2) % PT (9.5-12.3) SEC INR (2.0-3.5) Sodium 134 L (136-145) mmol/L Potassium 4.4 (3.5-5.1) mmol/L Chloride 98 (98-107) mmol/L Carbon Dioxide 30 (21-32) mmol/L Anion Gap 10.4 (10-20) mmol/L BUN 17 (7-18) mg/dL Creatinine 1.1 (0.70-1.30) mg/dL Est Cr Clr Drug Dosing TNP Estimated GFR (MDRD) > 60 Glucose 112 H (74-106) mg/dL Lactic Acid (0.4-2.0) mmol/L Calcium 8.6 (8.5-10.1) mg/dL Corrected Calcium 9.08 (8.5-10.1) mg/dL Magnesium 2.0 (1.8-2.4) mg/dL Total Bilirubin 0.6 (0.2-1.0) mg/dL AST 32 (15-37) U/L ALT 25 (16-63) U/L Alkaline Phosphatase 91 (46-116) U/L Troponin I < 0.017 (<=0.056) ng/mL C-Reactive Protein 0.6 (<=0.9) mg/dL NT-Pro-B Natriuret Pep 3393 H (<=450) pg/mL Total Protein 6.3 L (6.4-8.2) g/dL Albumin 3.4 (3.4-5.0) g/dL Globulin 2.9 Albumin/Globulin Ratio 1.17 SARS CoV-2 RNA Rapid PUJA Negative (NEGATIVE) 08/01/20 08/01/20 Range/Units 00:14 00:14 WBC (4.0-10.0) x10^3/uL RBC (4.5-6.0) x10^6/uL Hgb (14.0-18.0) g/dL Hct (40.0-52.0) % MCV (78.0-93.0) fL MCH (26.0-32.0) pg MCHC (32.0-36.0) g/dL RDW Coeff of Naseem (10.0-15.0) % Plt Count (130-400) x10^3/uL Neut % (Auto) (50.0-80.0) % Lymph % (Auto) (25.0-50.0) % [place] % (Auto) (2.0-11.0) % Eos % (Auto) (0.0-4.0) % Baso % (Auto) (0.2-1.2) % PT 10.3 (9.5-12.3) SEC INR 0.9 L (2.0-3.5) Sodium (136-145) mmol/L Potassium (3.5-5.1) mmol/L Chloride (98-107) mmol/L Carbon Dioxide (21-32) mmol/L Anion Gap (10-20) mmol/L BUN (7-18) mg/dL Creatinine (0.70-1.30) mg/dL Est Cr Clr Drug Dosing Estimated GFR (MDRD) Glucose (74-106) mg/dL Lactic Acid 1.0 (0.4-2.0) mmol/L Calcium (8.5-10.1) mg/dL Corrected Calcium (8.5-10.1) mg/dL Magnesium (1.8-2.4) mg/dL Total Bilirubin (0.2-1.0) mg/dL AST (15-37) U/L ALT (16-63) U/L Alkaline Phosphatase (46-116) U/L Troponin I (<=0.056) ng/mL C-Reactive Protein (<=0.9) mg/dL NT-Pro-B Natriuret Pep (<=450) pg/mL Total Protein (6.4-8.2) g/dL Albumin (3.4-5.0) g/dL Globulin Albumin/Globulin Ratio SARS CoV-2 RNA Rapid PUJA (NEGATIVE) Meds: Medications Generic Name Dose Route Start Last Admin Trade Name Freq PRN Reason Stop Dose Admin Sodium Chloride 10 ml 07/31/20 23:49 Saline Flush FLUSH ASDIRECTED PRN Keep Vein Open Discontinued Medications Generic Name Dose Route Start Last Admin Trade Name Freq PRN Reason Stop Dose Admin Iopamidol 100 ml 08/01/20 00:50 08/01/20 01:07 Isovue-300 (61%) IVPUSH 08/01/20 00:51 100 ml ONETIME ONE Administration - Radiology Interpretation Free Text/Narrative:: F/U abdominal series negative for obstruction. Moderate stool burden noted. 2 view chest x-ray obtained. No obvious infiltrate or failure pattern noted. + emphysema CT abdomen pelvis obtained with IV contrast. Posterior mid to lower L kidney low density suspicious for infarct of focal pyelo. Departure - Departure Time of Disposition: 02:02 Disposition: Home, Self-Care 01 Clinical Impression: Pyelonephritis - Discharge Information Referrals: PCP,None [Primary Care Provider] - Sepsis Event Note (ED) - Evaluation Sepsis Screening Result: No Definite Risk - Focused Exam Vital Signs: Vital Signs Temp Pulse Resp BP Pulse Ox 07/31/20 23:43 35.9 C L 59 L 18 141/68 H 96 - Problem List Review Problem List Initiated/Reviewed/Updated: Yes - My Orders Last 24 Hours: My Active Orders 07/31/20 23:49 Sodium Chloride 0.9% [Saline Flush] 10 ml FLUSH ASDIRECTED PRN 07/31/20 23:50 Peripheral IV Insertion Adult [OM.PC] Routine 07/31/20 23:52 EKG Documentation Completion [RC] STAT 07/31/20 23:54 CULTURE BLOOD [BC] Stat CULTURE BLOOD [BC] Stat Blood Culture x2 Reflex Set [OM.PC] Stat 08/01/20 00:01 Abdomen 2V AP Flat Upright [CR] Stat Chest 2V [CR] Stat 08/01/20 00:46 Abdomen Pelvis w Cont [CT] Stat - Assessment/Plan Last 24 Hours: My Active Orders 07/31/20 23:49 Sodium Chloride 0.9% [Saline Flush] 10 ml FLUSH ASDIRECTED PRN 07/31/20 23:50 Peripheral IV Insertion Adult [OM.PC] Routine 07/31/20 23:52 EKG Documentation Completion [RC] STAT 07/31/20 23:54 CULTURE BLOOD [BC] Stat CULTURE BLOOD [BC] Stat Blood Culture x2 Reflex Set [OM.PC] Stat 08/01/20 00:01 Abdomen 2V AP Flat Upright [CR] Stat Chest 2V [CR] Stat 08/01/20 00:46 Abdomen Pelvis w Cont [CT] Stat Plan: Pt. will be transported to [facility] for further workup. At this point the patient has been unable to provide a UA. He was given rocephin 2 gm IV in ER. Pt. will be transported via [facility] ground ambulance.
[2020-08-01] MEDS ORDERED: cefTRIAXone 2 GM Vial IVPUSH ONE (01:43)
[2020-08-01 01:45] VITALS: BP 109/47; PULSE 60
[2020-08-01] MEDS ORDERED: Sodium Chloride 0.9% 1,000 ML IV ONE (01:54)
--- NOTE | 2020-08-01 07:38 | CR ---
[id number] RAD/RAD Chest PA And Lateral EXAM: FRONTAL AND LATERAL CHEST INDICATION: Shortness of breath. COMPARISON: July 19, 2019. DISCUSSION: Hyperinflation is compatible with COPD. No acute infiltrates. Normal heart size. The ventral CORD or overlying the left anterior chest wall. IMPRESSION: 1. No acute findings. Skyler Hensley MD 08/01/20 0737 Thank you for allowing us to participate in the care of your patient.
--- NOTE | 2020-08-01 07:47 | CT ---
[id number] CT/CT Abdomen Pelvis W IV EXAM: ABDOMEN AND PELVIS CT WITH CONTRAST INDICATION: Left lower quadrant abdominal pain. COMPARISON: Radiograph same date and CT of March 06, 2019. DISCUSSION: Stable 4 mm nodular opacity in the right lung base (image 16 series 2). There is mild scarring or atelectasis in the lung bases and emphysematous changes. Volume loss present on the prior study has improved. A wedge-shaped hypodensity in the lower pole of left kidney likely represents an infarct. Pyelonephritis is a less likely differential consideration, correlate with urinalysis. There is atherosclerotic plaque in the aorta and its major branches including at the origin of the left renal artery, but no significant stenosis is seen. 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 Cholecystectomy. Mild prostatomegaly. Small fat-containing bilateral inguinal hernias. The liver, spleen, pancreas, adrenal glands, small bowel, and the large bowel are normal in appearance. No adenopathy, free air free fluid. Degenerative changes in the lumbar spine. Discectomy with interbody graft placement and posterior fusion and decompression at the L4-L5 level. Mild retrolisthesis L5 on S1. IMPRESSION: 1. Wedge-shaped hypodensity in the lower pole of the left kidney, favor infarct over focal pyelonephritis. The left renal artery demonstrates mild atherosclerotic plaque with no definite significant stenosis or thrombosis. Skyler Hensley MD 08/01/20 0745 Thank you for allowing us to participate in the care of your patient.
--- NOTE | 2020-08-01 07:49 | CR ---
[id number] RAD/RAD Abd Flat and Upright 2V EXAM: RAD Abd Flat and Upright 2V INDICATION: Left lower quadrant abdominal pain. COMPARISON: None. DISCUSSION: Mildly prominent colonic stool volume. No bowel dilation, free air or pneumatosis. Cholecystectomy clips in the right upper quadrant. Surgical changes including in the lower lumbar spine. Event recorder overlying the left lower chest. IMPRESSION: 1. Mildly prominent colonic stool volume. Skyler Hensley MD 08/01/20 0747 Thank you for allowing us to participate in the care of your patient.
== END 2020-08-01 02:39 | disposition home or self-care (01) ==
LOC: VM.ED 23:40
DX: N12 Tubulo-interstitial nephritis, not specified as acute or chronic (principal); J44.9 Chronic obstructive pulmonary disease, unspecified; F41.9 Anxiety disorder, unspecified; F32.9 Major depressive disorder, single episode, unspecified; Z20.828 Contact with and (suspected) exposure to other viral communicable diseases; Z79.01 Long term (current) use of anticoagulants; Z79.02 Long term (current) use of antithrombotics/antiplatelets; Z79.82 Long term (current) use of aspirin; Z79.899 Other long term (current) drug therapy; Z88.5 Allergy status to narcotic agent; Z88.8 Allergy status to other drugs, medicaments and biological substances
CPT/HCPCS: 36415; 71046; 74019; 74177; 80053; 83605; 83735; 83880; 84484; 85025; 85610; 86140; 87040; 93005; 96361; 96374; 99285-25; J0696; J7030; Q9967; U0002

== ENCOUNTER 2021-10-01 09:53 | Emergency (ER) | payer MEDICARE, OTHER ==
[2021-10-01] MEDS ORDERED: Aspirin 81 MG Tab.Chew PO ONE (10:02)
[2021-10-01] MEDS ORDERED: Nitroglycerin 0.4 MG Tab.SL SL PRN (10:02)
--- NOTE | 2021-10-01 10:09 | EDM.PDOC ---
ED HPI GENERAL MEDICAL PROBLEM - General Chief Complaint: Chest Pain Stated Complaint: POSSIBLE HEART ATTACK Time Seen by Provider: 10/01/21 09:55 Source of Information: Reports: Patient, Family History Limitations: Reports: No Limitations - History of Present Illness INITIAL COMMENTS - FREE TEXT/NARRATIVE: 81-year-old white male who presents the ER today with midsternal chest pain and shortness of breath. Patient states he got about 530 this morning to go to the restroom had some midsternal chest pain about a 8 out of 10 nonradiating he describes it as a pressure with a little bit of tightness. He states shortness of breath got worse. He took 3 nitro's and went back and laid down he states it may have alleviated the pain down about a 6 or 7 but not much. Family brought him in here to the emergency room for evaluation. Patient states that he has had a little bit of shortness of breath ongoing for the last possibly 12 to 24 hours At this time he denies any nausea or vomiting diaphoresis lightheadedness or weakness just the chest pain and the shortness of breath he states that he is on home O2 but only uses it at night and did not have it on this morning. 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 - Related Data Allergies Allergy/AdvReac Type Severity Reaction Status Date / Time meperidine [From Demerol] Allergy Severe Anaphylactic Verified 08/01/20 00:26 Shock, Hypotension cortisone AdvReac Intermediate memory loss Verified 08/01/20 00:26 codeine AdvReac Cough Verified 08/01/20 00:26 Home Meds: Home Meds Carbidopa/Levodopa [Carbidopa-Levodopa 10-100] 1 tab PO BEDTIME 08/10/17 [History] Citalopram [Citalopram HBr] 20 mg PO DAILY 03/08/19 [History] Clopidogrel Bisulfate [Plavix] 75 mg PO DAILY 03/08/19 [History] Gabapentin [Neurontin] 300 mg PO BEDTIME 03/08/19 [History] Meclizine [Antivert] 25 mg PO TID PRN 03/08/19 [History] Metoprolol Succinate [Toprol XL] 25 mg PO DAILY 03/08/19 [History] atorvaSTATin [Lipitor] 40 mg PO DAILY 03/08/19 [History] Warfarin [Coumadin] 2.5 mg PO DAILY 05/16/19 [History] Albuterol Sulfate [Proair Hfa] 2 puff IH Q4H PRN 07/19/19 [History] Albuterol/Ipratropium [DuoNeb 3.0-0.5 MG/3 ML] 3 ml IH Q4H PRN 07/19/19 [History] Budesonide [Pulmicort] 2 puff INH BID #60 07/20/19 [Rx] Arformoterol [Brovana] 15 mcg INH Q12HR 08/01/20 [History] Aspirin [Aspirin EC] 81 mg PO DAILY 08/01/20 [History] Betamethasone Dipropionate [Betamethasone Diprop Augmented] 15 gm TP BID PRN 08/01/20 [History] Past Medical History HEENT History: Reports: Cataract, Impaired Vision, Other (See Below) Other HEENT History: wears glasses. full upper and lower dentures Cardiovascular History: Reports: None Respiratory History: Reports: COPD Gastrointestinal History: Reports: GERD, Irritable Bowel Syndrome Other Gastrointestinal History: Ulcers Genitourinary History: Reports: None Musculoskeletal History: Reports: Back Pain, Chronic, Fracture, Fibromyalgia, Other (See Below) Other Musculoskeletal History: Restless leg syndrome Neurological History: Reports: Concussion Other Neuro History: restless legs Psychiatric History: Reports: Anxiety, Depression Endocrine/Metabolic History: Reports: None Hematologic History: Reports: None Immunologic History: Reports: None Oncologic (Cancer) History: Reports: None Dermatologic History: Reports: None - Infectious Disease History Infectious Disease History: Reports: Other (See Below) Other Infectious Disease History: patient fell asleep - Past Surgical History HEENT Surgical History: Reports: Cataract Surgery, Oral Surgery GI Surgical History: Reports: Appendectomy, Cholecystectomy, Colonoscopy, EGD, Polypectomy Musculoskeletal Surgical History: Reports: Shoulder Surgery Social & Family History - Family History Family Medical History: No Pertinent Family History - Caffeine Use Caffeine Use: Reports: Coffee, Tea ED ROS GENERAL - Review of Systems Review Of Systems: See Below Constitutional: Reports: No Symptoms HEENT: Reports: No Symptoms Respiratory: Reports: Shortness of Breath. Denies: Wheezing, Pleuritic Chest Pain, Cough Cardiovascular: Reports: Chest Pain. Denies: Blood Pressure Problem, Dyspnea on Exertion, Edema, Lightheadedness, Orthopnea, Palpitations, PND, Syncope Endocrine: Reports: No Symptoms GI/Abdominal: Reports: No Symptoms : Reports: No Symptoms Musculoskeletal: Reports: No Symptoms Skin: Reports: No Symptoms Neurological: Reports: No Symptoms Psychiatric: Reports: No Symptoms Hematologic/Lymphatic: Reports: No Symptoms Immunologic: Reports: No Symptoms ED EXAM, GENERAL - Physical Exam Exam: See Below Exam Limited By: No Limitations General Appearance: Alert, WD/WN, No Apparent Distress, Other (Patient looks like he does not feel well though he has no signs or symptoms of any respiratory distress) Eye Exam: Bilateral Eye: Normal Inspection, PERRL Ears: Hearing Grossly Normal Nose: Normal Inspection, Normal Mucosa, No Blood Throat/Mouth: Normal Inspection, Normal Lips, Normal Teeth, Normal Gums, Normal Oropharynx, Normal Voice, No Airway Compromise Head: Atraumatic, Normocephalic Neck: Normal Inspection, Supple, Non-Tender, Full Range of Motion Respiratory/Chest: No Respiratory Distress, No Accessory Muscle Use, Chest Non- Tender, Wheezing, Other (Patient has got mild end expiratory wheezing bilateral). No: Lungs Clear, Normal Breath Sounds Cardiovascular: Normal Peripheral Pulses, Regular Rate, Rhythm, No Edema, No Gallop, No JVD, No Murmur, No Rub GI/Abdominal: Normal Bowel Sounds, Soft, Non-Tender, No Organomegaly, No Distention, No Abnormal Bruit, No Mass. No: Guarding, Rigid, Rebound, Tender Back Exam: Normal Inspection, Full Range of Motion Extremities: Normal Inspection, Normal Range of Motion, Non-Tender, No Pedal Edema, Normal Capillary Refill Neurological: Alert, Oriented, CN II-XII Intact, Normal Cognition, Normal Gait Psychiatric: Normal Affect, Normal Mood Skin Exam: Warm, Dry, Intact, Normal Color, No Rash Lymphatic: No Adenopathy #1 Interpretation EKG Date: 10/01/21 Time: 09:55 Rhythm: NSR [place]: Normal P-Wave: Present QRS: Normal ST-T: Normal QT: Normal EKG Interpretation Comments: EKG normal sinus rhythm no acute ST elevation or depression there is some scattered T wave inversion Course - Vital Signs Text/Narrative:: CBC BMP coags troponin EKG chest x-ray CBC BMP within normal limits Troponin within normal limits EKG shows normal sinus rhythm no acute findings noted chest x-ray no acute findings noted Second troponin within normal limits Patient was rechecked sat 94 95% on room air recheck lungs clear to auscultation no active wheezing Patient has an appointment with primary care provider Tuesday states if anything changes will need to return to the ER okay with disposition treatment and going home - Orders/Labs/Meds Orders: Active Orders 24 hr Category Date Time Status EKG Documentation Completion [RC] STAT Care 10/01/21 10:02 Active Nitroglycerin [Nitrostat] Med 10/01/21 10:02 Active 0.4 mg SL Q5M PRN Medication Orders Nitroglycerin (Nitroglycerin 0.4 Mg Tab.Sl) 0.4 mg SL Q5M PRN PRN Reason: Chest Pain Labs: Laboratory Tests 10/01/21 10/01/21 10/01/21 Range/Units 10:10 10:10 10:10 WBC 7.6 (4.0-10.0) x10^3/uL RBC 4.51 (4.5-6.0) x10^6/uL Hgb 13.3 L (14.0-18.0) g/dL Hct 39.9 L (40.0-52.0) % MCV 88.5 (78.0-93.0) fL MCH 29.5 (26.0-32.0) pg MCHC 33.3 (32.0-36.0) g/dL RDW Coeff of Naseem 12.7 (10.0-15.0) % Plt Count 228 (130-400) x10^3/uL Immature Gran % (Auto) 0.10 (0.00-0.43) % Neut % (Auto) 71.7 (50.0-80.0) % Lymph % (Auto) 10.6 L (25.0-50.0) % [place] % (Auto) 9.4 (2.0-11.0) % Eos % (Auto) 7.7 H (0.0-4.0) % Baso % (Auto) 0.5 (0.2-1.2) % Neut # (Auto) 5.5 (1.8-7.7) x10^3/uL Lymph # (Auto) 0.8 L (1.0-4.8) x10^3/uL [place] # (Auto) 0.7 (0.0-0.8) x10^3/uL Eos # (Auto) 0.6 H (0.0-0.5) x10^3/uL Baso # (Auto) 0.0 (0.0-0.2) x10^3/uL Immature Gran # (Auto) 0.01 (0.00-0.07) x10^3/uL PT 21.3 H (9.9-12.5) SEC INR 1.9 L (2.0-3.5) Sodium 144 (136-145) mmol/L Potassium 4.3 (3.5-5.1) mmol/L Chloride 108 H (98-107) mmol/L Carbon Dioxide 29 (21-32) mmol/L Anion Gap 11.3 (5-15) mmol/L BUN 19 H (7-18) mg/dL Creatinine 1.3 (0.70-1.30) mg/dL Est Cr Clr Drug Dosing TNP Estimated GFR (MDRD) 53 Glucose 94 (70-99) mg/dL Calcium 8.4 L (8.5-10.1) mg/dL Troponin I High Sens 15 (<=76) ng/L 10/01/21 Range/Units 13:12 WBC (4.0-10.0) x10^3/uL RBC (4.5-6.0) x10^6/uL Hgb (14.0-18.0) g/dL Hct (40.0-52.0) % MCV (78.0-93.0) fL MCH (26.0-32.0) pg MCHC (32.0-36.0) g/dL RDW Coeff of Naseem (10.0-15.0) % Plt Count (130-400) x10^3/uL Immature Gran % (Auto) (0.00-0.43) % Neut % (Auto) (50.0-80.0) % Lymph % (Auto) (25.0-50.0) % [place] % (Auto) (2.0-11.0) % Eos % (Auto) (0.0-4.0) % Baso % (Auto) (0.2-1.2) % Neut # (Auto) (1.8-7.7) x10^3/uL Lymph # (Auto) (1.0-4.8) x10^3/uL [place] # (Auto) (0.0-0.8) x10^3/uL Eos # (Auto) (0.0-0.5) x10^3/uL Baso # (Auto) (0.0-0.2) x10^3/uL Immature Gran # (Auto) (0.00-0.07) x10^3/uL PT (9.9-12.5) SEC INR (2.0-3.5) Sodium (136-145) mmol/L Potassium (3.5-5.1) mmol/L Chloride (98-107) mmol/L Carbon Dioxide (21-32) mmol/L Anion Gap (5-15) mmol/L BUN (7-18) mg/dL Creatinine (0.70-1.30) mg/dL Est Cr Clr Drug Dosing Estimated GFR (MDRD) Glucose (70-99) mg/dL Calcium (8.5-10.1) mg/dL Troponin I High Sens 14 (<=76) ng/L Meds: Medications Generic Name Dose Route Start Last Admin Trade Name Freq PRN Reason Stop Dose Admin Nitroglycerin 0.4 mg 10/01/21 10:02 Nitroglycerin 0.4 Mg Tab.Sl SL Q5M PRN Chest Pain Discontinued Medications Generic Name Dose Route Start Last Admin Trade Name Freq PRN Reason Stop Dose Admin Aspirin 324 mg 10/01/21 10:02 Aspirin 81 Mg Tab.Chew PO 10/01/21 10:03 ONETIME ONE Departure - Departure Time of Disposition: 12:00 Disposition: Home, Self-Care 01 Condition: Good Clinical Impression: Chest pain Referrals: PCP,Not In Area [Primary Care Provider] - Forms: ED Department Discharge Additional Instructions: Your DX is Chest pain Follow-up with your primary care provider in the next 24 to 48 hours Return to the emergency room if anything changes or gets worse - Problem List & Annotations (1) Chest pain SNOMED Code(s): 33796250 Code(s): R07.9 - CHEST PAIN, UNSPECIFIED Status: Acute Current Visit: Yes - My Orders Last 24 Hours: My Active Orders 10/01/21 10:02 EKG Documentation Completion [RC] STAT Nitroglycerin [Nitrostat] 0.4 mg SL Q5M PRN - Assessment/Plan Last 24 Hours: My Active Orders 10/01/21 10:02 EKG Documentation Completion [RC] STAT Nitroglycerin [Nitrostat] 0.4 mg SL Q5M PRN
--- NOTE | 2021-10-01 10:43 | CR ---
[id number] RAD/RAD Chest PA or AP 1V EXAM: FRONTAL CHEST INDICATION: CHEST PAIN. COMPARISON: August 01, 2020. DISCUSSION: Hyperinflation compatible with chronic obstructive pulmonary disease. 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 Normal heart size. No effusions. Partially imaged cervical spine fusion hardware. IMPRESSION: 1. No acute findings. Skyler Hensley MD 10/01/21 1041 Thank you for allowing us to participate in the care of your patient.
[2021-10-01 10:53] LABS: CHLORIDE,CL 108 mmol/L (98-107); SODIUM,NA 144 mmol/L (136-145)
[2021-10-01 11:01] LABS: ANION GAP 11.3 mmol/L (5-15)
[2021-10-01 14:45] VITALS: PULSE 86
[2021-10-01 15:06] VITALS: BP 154/86
== END 2021-10-01 14:42 | disposition home or self-care (01) ==
LOC: VM.ED 09:53
DX: R07.2 Precordial pain (principal); J44.9 Chronic obstructive pulmonary disease, unspecified; K21.9 Gastro-esophageal reflux disease without esophagitis; Z88.5 Allergy status to narcotic agent; Z88.8 Allergy status to other drugs, medicaments and biological substances; Z79.82 Long term (current) use of aspirin; Z79.02 Long term (current) use of antithrombotics/antiplatelets; Z79.01 Long term (current) use of anticoagulants; Z79.899 Other long term (current) drug therapy
CPT/HCPCS: 36415; 71045; 80048; 84484; 85025; 85610; 93005; 99285; A9270

== ENCOUNTER 2023-11-30 22:59 | Emergency (ER) | payer MEDICARE, OTHER ==
[2023-11-30 23:40] LABS: BASOPHILS ABSOLUTE AUTO 0.1 x10^3/uL (0.0-0.2); BASOPHILS PERCENT AUTO 0.7 % (0.2-1.2); EOSINOPHILS ABSOLUTE AUTO 0.4 x10^3/uL (0.0-0.5); EOSINOPHILS PERCENT AUTO 4.7 % (0.0-4.0); HEMATOCRIT 41.6 % (40.0-52.0); HEMOGLOBIN 13.6 g/dL (14.0-18.0); IMMATURE GRAN ABSOLUTE AUTO 0.01 x10^3/uL (0.00-0.07); LYMPHOCYTES ABSOLUTE AUTO 0.8 x10^3/uL (1.0-4.8); LYMPHOCYTES PERCENT AUTO 9.6 % (25.0-50.0); MEAN CORPUSCULAR HEMOGLOBIN 29.6 pg (26.0-32.0); MEAN CORPUSCULAR HGB CONC 32.7 g/dL (32.0-36.0); MEAN CORPUSCULAR VOLUME 90.4 fL (78.0-93.0); MONOCYTES ABSOLUTE AUTO 0.6 x10^3/uL (0.0-0.8); NEUTROPHILS ABSOLUTE AUTO 6.8 x10^3/uL (1.8-7.7); NEUTROPHILS PERCENT AUTO 77.9 % (50.0-80.0); PLATELET COUNT,PLT 208 x10^3/uL (130-400); WHITE BLOOD CELL COUNT,WBC 8.7 x10^3/uL (4.0-10.0)
[2023-11-30] MEDS ORDERED: Aspirin 81 MG Tab.Chew PO ONE (23:43)
[2023-11-30] MEDS ORDERED: Albuterol/Ipratropium 3.0-0.5 MG/3 ML Neb Soln NEB ONE (23:54)
[2023-11-30 23:59] LABS: ALANINE AMINOTRANSFERASE,ALT 11 U/L (16-63); ALBUMIN 3.3 g/dL (3.4-5.0); ALKALINE PHOSPHATASE 138 U/L (46-116); ANION GAP 12.9 mmol/L (5-15); ASPARTATE AMNIOTRANSFERASE,AST 15 U/L (15-37); BILIRUBIN TOTAL 0.3 mg/dL (0.2-1.0); BLOOD UREA NITROGEN,BUN 24 mg/dL (7-18); C-REACTIVE PROTEIN < 0.50 mg/dL (<=0.50); CALCIUM 8.4 mg/dL (8.5-10.1); CARBON DIOXIDE,CO2 27 mmol/L (21-32); CHLORIDE,CL 107 mmol/L (98-107); CREATININE 1.5 mg/dL (0.70-1.30); ESTIMATED GFR 45 mL/min (>=60); GLUCOSE RANDOM 137 mg/dL (70-99); POTASSIUM,K 3.9 mmol/L (3.5-5.1); PROTEIN TOTAL,TP 6.3 g/dL (6.4-8.2); SODIUM,NA 143 mmol/L (136-145)
[2023-12-01] MEDS ORDERED: Take Home: predniSONE 20 MG, 2 Tab Pack PO ONE (00:38)
[2023-12-01] MEDS ORDERED: Azithromycin 250 MG Tab PO ONE (00:38)
[2023-12-01 03:23] VITALS: BP 127/55; PULSE 73
== END 2023-12-01 00:52 | disposition home or self-care (01) ==
LOC: VM.ED 22:59 → SUPCPDRO 22:59 → VM.ED 12-01 00:52
DX: J44.1 Chronic obstructive pulmonary disease with (acute) exacerbation (principal); Z79.899 Other long term (current) drug therapy; Z88.8 Allergy status to other drugs, medicaments and biological substances; Z79.2 Long term (current) use of antibiotics; Z79.01 Long term (current) use of anticoagulants; Z90.49 Acquired absence of other specified parts of digestive tract; Z87.891 Personal history of nicotine dependence
CPT/HCPCS: 36415; 71045; 80053; 84484; 85025; 86140; 93005; 94640; 99285; A9270; J7512; J7620-GY